=== PATIENT | male | born 1955 | race Caucasian/White ===

== ENCOUNTER 2018-11-01 01:00 | Outpatient (CLI) | payer BC, MEDICARE, SELFPAY ==
--- NOTE | 2018-11-01 08:13 | DI.RAD_ITS ---
SYMPTOM/DIAGNOSIS: LOW BACK PAIN, M54.5 LUMBAR SPINE: There are no prior comparison exams. The vertebral bodies are well maintained in height. There is severe narrowing of the L 4-5 and L 5-S 1 disc spaces. There are endplate osteophytes and sclerosis at these levels. There are mild facet degenerative changes at L 3-4 through L 5-S 1. The remaining disc spaces are well maintained. The SI joints are unremarkable. IMPRESSION: Degenerative disc changes, most severe at L 4-5 and L 5-S 1.
[2018-11-01 08:44] LABS: ALT 75 U/L (12-78); AST 39 U/L (15-37); Alkaline Phosphatase 75 U/L (46-116); Anion Gap 12.6 mmol/L (3-11); BUN 9 mg/dL (7-18); Bilirubin, Direct 0.24 mg/dL (0.00-0.20); Bilirubin, Total 0.8 mg/dL (0.2-1.0); CO2 25.4 mmol/L (21.0-32.0); CREATININE 0.82 mg/dL (0.70-1.30); Calcium 9.7 mg/dL (8.5-10.1); Chloride 95 mmol/L (98-107); Glucose 104 mg/dL (70-100); Potassium 4.8 mmol/L (3.5-5.1); Sodium 133 mmol/L (136-145); Total Protein 8.1 g/dL (6.4-8.2)
[2018-11-01 09:04] LABS: Cholesterol 206 mg/dL (50-200); HDL Cholesterol 101 mg/dL (40-60); LDL CHOLESTEROL 96 mg/dL (<100); Triglyceride 30 mg/dL (30-150)
== END 2018-11-01 01:20 ==
PROVIDERS: PCP Internal Medicine; Visit Provider Internal Medicine
DX: M54.5 Low back pain (principal); M51.37 Other intervertebral disc degeneration, lumbosacral region; I10 Essential (primary) hypertension; R73.01 Impaired fasting glucose; R74.8 Abnormal levels of other serum enzymes
CPT/HCPCS: 36415; 80048; 80061; 80076; 83721; 72110

== ENCOUNTER 2019-10-30 02:33 | Outpatient (CLI) | payer MEDICARE, BC, SELFPAY ==
[2019-10-30 09:02] LABS: ALT 64 U/L (16-63); AST 31 U/L (15-37); Albumin 3.8 g/dL (3.4-5.0); Alkaline Phosphatase 60 U/L (46-116); Anion Gap 5.7 mmol/L (3-11); BUN 11 mg/dL (7-18); Bilirubin, Total 0.5 mg/dL (0.2-1.0); CO2 31.3 mmol/L (21.0-32.0); CREATININE 0.78 mg/dL (0.70-1.30); Calcium 9.7 mg/dL (8.5-10.1); Calculated LDL 114 mg/dL; Chloride 100 mmol/L (98-107); Cholesterol 203 mg/dL (<200); Glucose 114 mg/dL (74-106); HDL Cholesterol 80 mg/dL (40-60); Potassium 5.3 mmol/L (3.5-5.1); Sodium 137 mmol/L (136-145); Total Protein 7.7 g/dL (6.4-8.2); Triglyceride 45 mg/dL (<150)
== END 2019-10-30 02:53 ==
PROVIDERS: PCP Internal Medicine; Visit Provider Internal Medicine
DX: I10 Essential (primary) hypertension (principal); R73.01 Impaired fasting glucose; R76.8 Other specified abnormal immunological findings in serum
CPT/HCPCS: 36415; 80053; 80061

== ENCOUNTER 2022-06-04 01:21 | Outpatient (CLI) | payer MEDICARE, BC, SELFPAY ==
[2022-06-04 09:28] LABS: ALT 39 U/L (16-63); AST 20 U/L (15-37); Albumin 3.7 g/dL (3.4-5.0); Alkaline Phosphatase 69 U/L (46-116); Anion Gap 7.8 mmol/L (3-11); BUN 9 mg/dL (7-18); Bilirubin, Total 0.3 mg/dL (0.2-1.0); CO2 30.2 mmol/L (21.0-32.0); CREATININE 0.9 mg/dL (0.70-1.30); Calcium 9.4 mg/dL (8.5-10.1); Calculated LDL 106 mg/dL (<100); Chloride 101 mmol/L (98-107); Cholesterol 181 mg/dL (<200); Glucose 121 mg/dL (74-106); HDL Cholesterol 66 mg/dL (40-60); Potassium 4.2 mmol/L (3.5-5.1); Sodium 139 mmol/L (136-145); Total Protein 8.3 g/dL (6.4-8.2); Triglyceride 47 mg/dL (<150)
== END 2022-06-04 01:22 | disposition home or self-care (01) ==
LOC: LBO 01:21
PROVIDERS: PCP Internal Medicine; Visit Provider Internal Medicine
DX: I10 Essential (primary) hypertension (principal); E78.5 Hyperlipidemia, unspecified; E78.00 Pure hypercholesterolemia, unspecified; R73.01 Impaired fasting glucose; R76.8 Other specified abnormal immunological findings in serum
CPT/HCPCS: 36415; 80053; 80061

== ENCOUNTER 2023-04-25 02:34 | Outpatient (CLI) | payer MEDICARE, BC, SELFPAY ==
[2023-04-25 08:25] LABS: Hemoglobin A1C 5.7 % (<5.7)
[2023-04-25 08:50] LABS: ALT 29 U/L (16-63); AST 18 U/L (15-37); Albumin 4.1 g/dL (3.4-5.0); Alkaline Phosphatase 76 U/L (46-116); Anion Gap 9.6 mmol/L (3-11); BUN 11 mg/dL (7-18); Bilirubin, Total 0.7 mg/dL (0.2-1.0); CO2 28.4 mmol/L (21.0-32.0); CREATININE 0.8 mg/dL (0.70-1.30); Calcium 9.9 mg/dL (8.5-10.1); Calculated LDL 119 mg/dL (<100); Chloride 97 mmol/L (98-107); Cholesterol 215 mg/dL (<200); Glucose 102 mg/dL (74-106); HDL Cholesterol 91 mg/dL (40-60); Potassium 4.5 mmol/L (3.5-5.1); Sodium 135 mmol/L (136-145); Total Protein 8.3 g/dL (6.4-8.2); Triglyceride 29 mg/dL (<150)
== END 2023-04-25 02:35 | disposition home or self-care (01) ==
LOC: LBO 02:34
PROVIDERS: PCP Nurse Practitioner Adult Health; Visit Provider Nurse Practitioner Adult Health
DX: E78.5 Hyperlipidemia, unspecified (principal); F10.10 Alcohol abuse, uncomplicated; I10 Essential (primary) hypertension; R73.01 Impaired fasting glucose; Z79.899 Other long term (current) drug therapy
CPT/HCPCS: 36415; 80053; 80061; 83036

== ENCOUNTER 2024-04-30 03:51 | Outpatient (CLI) | payer MEDICARE, BC, SELFPAY ==
--- OUTSIDE RECORDS SUMMARY | 2024-04-30 03:53 | XMS_ITS | Encounter Summary ---
Author Organization Formerly [facility] Address [facility] [place] [address] Care Team Providers Care Flower Stripper Name Role Phone Radha Rossi MD Primary Care Provider [phone] Reason for Visit * Reason Comments Blurred Vision * Consultation (Urgent) - Closed Specialty Diagnoses / Procedures Referred By Contdiana t Referred To Contact Ophthalmology Diagnoses mac off retinal detachment os Rocky Thomas MD [address] [address] Juan Becerra MD [facility] [place] [address] Referral ID Status Reason Start Date Expiration Date V isits Requested Visits Authorized [id number] Closed Consult, Test & Treat 10/11/2019 10/10/2020 1 1 Encounter Details Date Type Department Care Team (Latest Contact Info) Description 10/11/2019 12:45 PM EST [place] [address] Juan Becerra MD [facility] [place] [address] Macula-off rhegmatogenous retinal detachment, left; PVD (posterior vitreous detachment), right eye Social History Tobacco Use Types Packs/Day Years Used Date Smoking Tobacco: Never Smokeless Tobacco: Never Alcohol Use Standard Drinks/Week Comments Yes 0 (1 standard drink = 0.6 oz pur e alcohol) Sex and Gender Information Value Date Recorded Sex Assigned at Not on file Gender Identity Not on file Sexual Orientation Not on file documented as of this encounter Progress Notes * Juan Becerra MD - 10/11/2019 12:45 PM EST Assessment/Plan: Juan Perez is a 64 y.o. male with the following ophthalmic issues: 1. 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 PVD OD Comment: Discussed RD, risk of permanent total loss of vision OS, will need surgical repair. To Dr. Jane now documented in this encounter Plan of Treatment Not on file documented as of this encounter Visit Diagnoses Diagnosis Macula-off rhegmatogenous retinal detachment, left PVD (posterior vitreous detachment), right eye Vitreous degeneration documented in this encounter Care Teams Flower Stripper Relationship Specialty Start Date End Date Radha Rossi MD [address] [place] [address] PCP - General 11/30/13 documented as of this encounter
--- OUTSIDE RECORDS SUMMARY | 2024-04-30 03:53 | XMS_ITS | Clinical Summary ---
Author Organization [facility] [place] [address] Care Team Providers Care Bow Stapler Name Role Phone Radha Rossi MD Primary Care Provider [phone] Allergies No known active allergies Medications Medication Sig Dispensed Refills Start Date End Date Status amLODIPine-benazepril (LOTREL) 5-20 mg Capsule Take 1 capsule by mouth daily. 11/10/2014 Active aspirin 81 mg Tablet, Chewable Take 81 mg by mouth daily. Active multivitamin with minerals (THERA-M) 9-0.4 mg Tablet Take 1 tablet by mouth daily. Active VIAGRA 100 mg Tablet Take 100 mg by mouth as needed. 02/08/2015 Active famotidine (Pepcid) 20 mg Tablet TAKE 1 TABLET BY MOUTH DAILY 04/29/2021 Active Active Problems Problem Noted Date Diagnosed Date Dupuytren's contracture of both hands 03/12/2015 Basal cell carcinoma 11/30/2013 Family History Medical History Relation Comments Cancer Father Amblyopia Neg Hx Glaucoma Neg Hx Macular Degeneration Neg Hx Retinal Detachment Neg Hx Strabismus Neg Hx Relation Status Comments Father Social History Tobacco Use Types Packs/Day Years Used Date Smoking Tobacco: Never Smokeless Tobacco: Never Alcohol Use Standard Drinks/Week Comments Yes 0 (1 standard drink = 0.6 oz pur e alcohol) Sex and Gender Information Value Date Recorded Sex Assigned at Not on file Gender Identity Not on file Sexual Orientation Not on file Last Filed Vital Signs Vital Sign Reading Time Taken Comments Blood Pressure 165/86 10/15/2019 3:45 PM EST Pulse 88 10/15/2019 11:20 AM EST Temperature 37.1 ??C (98.8 ??F) 10/15/2019 3:36 PM ES T Respiratory Rate 18 10/15/2019 3:45 PM EST Oxygen Saturation 99% 10/15/2019 3:45 PM EST Inhaled Oxygen Concentration - - Weight 68 kg (150 lb) 10/15/2019 11:20 AM EST Height 163.8 cm (5' 4.5) 10/15/2019 11:20 AM ES T Body Mass Index 25.35 10/15/2019 11:20 AM EST Plan of Treatment Health Maintenance Due Date Last Done Comments CT Colonography 1954 Colonoscopy 1954 Colorectal Cancer Screening 1955 FIT DNA 1954 FIT 1954 Sigmoidoscopy (10 year) with FIT yearly 1954 Sigmoidoscopy 1954 Hepatitis C Screening 1972 Lipid Screening 1972 Tdap adult 1973 Tetanus vaccine 1973 Zoster vaccine (1 of 2) 2004 Advance Directive 2009 Pneumoccocal Vaccine: 65+ (1 of 1 - PCV) 2019 Covid-19 Vaccine (1 - 2022-24 season) 2023 Influenza (Flu) vaccine (1 o f 1 - Influenza standard series) 06/17/2024 Care Teams Bow Stapler Relationship Specialty Start Date End Date Radha Rossi MD [address] [place], [place] [id number] PCP - General 11/30/13
--- OUTSIDE RECORDS SUMMARY | 2024-04-30 03:53 | XMS_ITS | Encounter Summary ---
Author Organization [facility] Address [address] [place] [address] Care Team Providers Care Vascular Ultrasound Technician Name Role Phone Unknown, Provider Primary Care Provider Encounter Details Date Type Department Care Team (Late st Contact Info) Description 09/27/2014 Results Only [facility] Laboratory Services - [facility] ([facility]) [address] [place], [place] [address] Arjun Garcia MD [address] [place] [id number] Social History Tobacco Use Types Packs/Day Years Used Date Smoking Tobacco: Never Assessed Sex and Gender Information Value Date Recorded Sex Assigned at Not on file Gender Identity Not on file Sexual Orientation Not on file documented as of this encounter Plan of Treatment Not on file documented as of this encounter Procedures Procedure Name Priority Date/Time Associated Diagnosis Comments SURGICAL PATHOLOGY Routine 09/27/2014 9:24 EST documented in this encounter Results * SURGICAL PATHOLOGY (09/27/2014 9:24 EST) Pathology Report: SURGICAL PATHOLOGY REPORT Reports generated via electronic interface contain original data; however they are lacking the format of the original report. Caution should be taken when reading/interpret ing unformatted reports. Name: ? FÁTIMA AKINS ? Accession #: ? [id number] ? : ? 1955 (Age: 59) ??M ? Collect Date: ? 09/27/2014 ? Location: ? [facility] ? Receive Date: ? 09/28/2014 ? Provider: ARJUN GARCIA MD Copy to: PETER RAMAN MD ? Final Pathologic Diagnosis: SOFT TISSUE OF HAND, LEFT, PALMAR FASCIA, EXCISION: - ??Palmar fibromatosis (Dupuytren contracture). Document reviewed and electronically signed by: NATHAN DOWNING MD Report ??Date: 10/01/2014 15:59 By the signature above, the attending physician certifies that he/she has personally conducted a gross and/or microscopic examination of the described specimens and rendered or confirmed the above diagnosis. Specimen(s) Received: Dupuytren's fascia Clinical History: Palmar fascia, severe Dupuytren's disease, Dupuytren's contracture left hand Gross Description: ? Received in formalin labelled with proper patient identification (initials H, D) and Dupuytren's fascia are two irregular fragments of figueroa-white fibrous tissue (0.9 x 0.4 x 0.4 cm and 1.0 x 0.7 x 0.5 cm). ??The larger piece is inked black and the smaller piece is inked blue. ??The tissues are sectioned and the cut surfaces are unremarkable. ??The specimen is entirely submitted in 1. Mayra Rios 09/30/2014 09:34 AM End of Report [facility] 09/27/2014 9:24 EST 09/28/2014 9:24 EST Arjun Garcia MD PATHOLOGY ORDERABLE S Performing Organization Address City/State/[facility] Co de Phone Number [facility] [address] [place] [address] documented in this encounter Visit Diagnoses Not on filedocumented in this encounter Care Teams Vascular Ultrasound Technician Relationship Specialty Start Date End Date Unknown, Provider, PCP - General 09/30/14 documented as of this encounter
--- OUTSIDE RECORDS SUMMARY | 2024-04-30 03:53 | XMS_ITS | Encounter Summary ---
Author Organization [facility] [place] [address] Care Team Providers Care Hat Parts Cutter Machine Name Role Phone Radha Rossi MD Primary Care Provider [phone] Reason for Visit * Reason Comments Post Op Macula-off RD OS (PP V-C3F8 10/16/19) Encounter Details Date Type Department Care Team (Late st Contact Info) Description 11/29/2019 2:15 PM EST Office Visit Ophthalmology at [facility] [place] [place] [address] Bassem Jane [place] [facility] [place] [address] Macula-off [address] OS (PPV-C3F8 10/16/19) Social History Tobacco Use Types Packs/Day Years Used Date Smoking Tobacco: Never Smokeless Tobacco: Never Alcohol Use Standard Drinks/Week Comments Yes 0 (1 standard drink = 0.6 oz pur e alcohol) Sex and Gender Information Value Date Recorded Sex Assigned at Not on file Gender Identity Not on file Sexual Orientation Not on file documented as of this encounter Patient Instructions * Patient Instructions* Bassem Jane MD - 11/29/2019 2:15 PM EST The doctor recommended laser retinopexy. What should I expect? Before the Laser The doctor will use topical anesthetics with drops and/or injections to numb up the eye. During the laser The laser takes 5-15 minutes. The patients frequently feel some discomfort that is generally well tolerated. If you feel that you cannot tolerate it please tell the doctor and the settings will be adjusted. If you still feel pain the treatment can be stopped. A small minority of the patients feel light-headed during the laser. If you feel so please let usknow and we will stop it. If you're diabetic please make sure you eat at your usual times prior to the laser. Immediately after the laser The vision is very blurry for 1-2 minutes but goes back to baseline. Some patients feel foreign body sensation and mild pain for ~24 hours and in these cases application of over the counter artificial tears is recommended. Over the counter medications (e.g. Tylenol or ibuprophen) might also help For several days after the laser The eye might look red and swollen. Use of artificial tears sometimes helps. Activity restrictions: A) please avoid any high impact activities such as long distance running, heavy weight lifting (i.e. More than 20lbs), contact sports (e.g. boxing, basketball etc) for 2 weeks. It's ok however to do most of your basic daily activities including sports with low impact (swimming, bike riding, walkingon treadmill etc) documented in this encounter Progress Notes * Bassem Jane MD - 11/29/2019 2:15 PM EST ASSESSMENT/PLAN: 1. Macula-off RD OS (PPV-C3F8 10/16/19) Visual Acuity Visual Acuity (Snellen - Linear) Right Left Dist sc 20/20 -2 20/70 Dist ph sc 20/50 Near cc 20/20 20/30 Tonometry Tonometry (Applanation, 2:03 PM) Right Left Pressure 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 The treatment options were discussed and agreed to do prophylactic LR. If it fails surgery might be recommended. Follow up in 1 week for DFE OS I, Jonel Lu, have performed the documentation for this encounter in the presence of, and acting as a scribe for Bassem Jane MD. I performed the services which were documented by the scribe, and I agree with the accuracy of the documentation in this encounter. Bassem Jane MD, PhD documented in this encounter Plan of Treatment Not on file documented as of this encounter Visit Diagnoses Diagnosis Macula-off RD OS (PPV-C3F8 10/16/19) documented in this encounter Care Teams Hat Parts Cutter Machine Relationship Specialty Start Date End Date Radha Rossi MD [address] [place] [address] PCP - General 11/30/13 documented as of this encounter
--- OUTSIDE RECORDS SUMMARY | 2024-04-30 03:53 | XMS_ITS | Encounter Summary ---
Author Organization [facility] [place] [address] Care Team Providers Care Applications Support Engineer Name Role Phone Radha Rossi MD Primary Care Provider [phone] Reason for Visit * Reason Comments Post Op Encounter Details Date Type Department Care Team (Late st Contact Info) Description 10/24/2019 10:30 AM EST Office Visit Ophthalmology at [facility] [place] [address] [place] [address] Macula[address] OS (PPV-C3F8 10/16/19) Social History [...] * Patient Instructions* Bassem Jane MD - 10/24/2019 10:30 AM EST Images from the original note were not included. Drop Name: Cap Color: Dose: 1 Drop Eye: Prednisolone Acetate 1% [place] or White 2 times per day Until bottle empties Operated eye Cosopt Blue 2 times per day until next visit Operated eye Vigamox (Moxifloxacin) Salazar STOP Ointment Small tube 2-3x daily as needed Operated eye Make sure to wait 3-5 minutes between eye drops. POSITIONING: No special positioning WARNING SYMPTOMS People frequently feel mild-moderate discomfort that improves within a few days. Eyelid edema and redness are also common. However, if you feel new pain, light sensitivity and vision loss please call the [facility] telephone center ([phone]) immediately and speak to the adult probation officer vanstone machine operator. PAIN May use over the counter pain medications as needed (Tylenol 1000mg- up to 3 times daily) alternating with ibuprofen (600mg up to 3 times per day) EYE SHIELD: Keep eye shield on the eye overnight. If you catch yourself touching your eye during daytime pleaseuse eyeshield during daytime to protect your eye. OTHERS Make sure you wash your hands prior to touching your eye (i.e. Prior to applying your eyedrops) Avoid lifting heavy weights for 1 week (i.e. Not more than 5 lbs) Avoid high impact exercise (e.g. Running) Avoid straining- valsalva, retching, vomiting, coughing FLIGHTS: Do NOT take any flights until you discuss it with your doctor. There's severe risk for the eye if you're in areas of high altitude (flight, very tall mountains etc) documented in this encounter Progress Notes * Bassem Jane MD - 10/24/2019 10:30 AM EST ASSESSMENT/PLAN: 1. Macula-off RD OS (PPV-C3F8 10/16/19) POW1 Doing well. The IOP is good, the retina attached and there are no signs of infection. Taper PF BID till the bottle empties. Taper Cosopt BID OS until next visit. Stop Vigamox and cycloplegics. Follow up in 5-6 weeks HCK for DFE, OCT OU I, Jonel Lu, have performed the documentation [...] 10/16/19) documented in this encounter Care Teams Applications Support Engineer Relationship Specialty Start Date End Date Radha Rossi MD [address] [place] [address] PCP - General 11/30/13 documented as of this encounter
--- OUTSIDE RECORDS SUMMARY | 2024-04-30 03:53 | XMS_ITS | Encounter Summary ---
Author Organization [facility] [place] [address] Care Team Providers Care Braiding Machine Tender Name Role Phone Radha Rossi MD Primary Care Provider [phone] Encounter Details Date Type Department Care Team (Latest Contact Info) Description 10/11/2019 1:45 PM EST Office Visit Ophthalmology at [facility] [place] [address] Bassem Jane MD [facility] [place] [address] Macula-off rhegmatogenous retinal detachment, left Social History Tobacco Use Types Packs/Day Years [...] * Patient Instructions* Bassem Jane MD - 10/11/2019 1:45 PM EST DROPS: POSITIONING: Please keep a face down position for ~50mins/hour while awake. It's ok to take a ~10 minute break every hour. Please sleep on your side with the RIGHT cheek touching the pillow FLIGHTS: Do NOT take any flights until you discuss it with your doctor. There's severe risk for the eye if you're in areas of high altitude (flight, very tall mountains etc) documented in this encounter Progress Notes * Bassem Jane MD - 10/11/2019 1:45 PM EST ASSESSMENT/PLAN: 1. Macula-off rhegmatogenous retinal detachment, left 1. Retinal detachment, left eye (09/2019) Juan Perez presents with diagnosis of retinal detachment in the left eye. Discussed that if left untreated a retinal detachment will almost certainly lead to permanent vision loss. Discussed the risks, benefits and alternatives of the treatment options including: prophylactic laser photocoagulation vs pneumatic retinopexy vs PPV vs SB vs PPV-SB and the patient wishes to proceed with vitrectomy under MAC. Till then will do pneumatic displacement with C3F8 (w/o retinopexy). Recommend face down position and tobradex QID till the day of surgery AAO video shown/ASRS fact sheet given Discussed the risk of surgery including need for additional surgery, recurrent retinal detachment, endophthalmitis, retinal artery occlusion, suprachoroidal hemorrhage, lens dislocation, loss of vision, loss of eye. Discussed that even after successful repair there's a high risk that the vision will be permanently affected. Also discussed the risks of anesthesia that will be discussed with the anesthesiologist 2. PVD OU 3. PCIOL OU C3F8 bubble injection today Follow up in 1 day for gas bubble check Follow up for surgery and HCK I, Jonel Lu, have performed the documentation for this encounter in the presence of, and acting as a scribe for Bassem Jane MD. I performed the services which were documented by the scribe, and I agree with the accuracy of the documentation in this encounter. Bassem Jane MD, PhD Extended Ophthalmoscopy and drawing: Technique: 20D with scleral depression and 78D with the slit lamp Findings: Main Ophthalmology Exam External Exam Right Left External Normal Normal Slit Lamp Exam Right Left Lids/Lashes Normal Normal Conjunctiva/Sclera White and quiet White and quiet Cornea Clear Clear Anterior Chamber Deep and quiet Deep and quiet Iris Round and reactive, dilated Round and reactive, dilated Lens PCIOL PCIOL Fundus Exam Right Left Vitreous PVD PVD Disc Normal Normal C/D Ratio 0.3 0.6 Macula drusen Macula off Vessels Normal perfused Periphery Normal RD 10:30-5:00 Plan: See assessment and plan (exam note) documented in this encounter Plan of Treatment Not on file documented as of this encounter Procedures Procedure Name Priority Date/Time Associated Diagnosis Comments VITRCTMY W/WO SCLER RODGERS FOR RETINAL DETACH W/WO AIR/GAS/LASER/CRYO Routine 10/11/2019 3:05 PM EST Macula-off rhegmatogenous retinal detachment, left documented in this encounter Visit Diagnoses Diagnosis Macula-off rhegmatogenous retinal detachment, left documented in this encounter Care Teams Braiding Machine Tender Relationship Specialty Start Date End Date Radha Rossi MD [address] [place] [address] PCP - General 11/30/13 documented as of this encounter
--- OUTSIDE RECORDS SUMMARY | 2024-04-30 03:53 | XMS_ITS | Encounter Summary ---
Author Organization [facility] [place] [address] Care Team Providers Care Commercial Account Executive Name Role Phone Radha Rossi MD Primary Care Provider [phone] Encounter Details Date Type Department Care Team (Late st Contact Info) Description 10/16/2019 12:15 PM EST Office Visit Ophthalmology at [facility] [place] [address] Bassem Jane MD [facility] [place] [address] Macula-off [address] OS (PPV-C3F8 10/16/19) Social History [...] * Patient Instructions* Bassem Jane MD - 10/16/2019 12:15 PM EST Images from the original note were not included. Drop Name: Cap Color: Dose: 1 Drop Eye: Prednisolone Acetate 1% [place] or White 4 times per day Operated eye Vigamox (Moxifloxacin) Salazar 4 times per day Operated eye Cosopt Blue 3 times per day Operated eye Ointment Small tube As needed, up to 4 times daily (to relieve foreign body sensation and irritation caused by stitches) Operated eye Atropine Red none none Make sure you wait 3-5 minutes between each drop application. Please use the ointment at least 1 hour prior to and/or after the drops (applying the ointment right before the drops will not allow youreye to absorb the drops) POSITIONING: No special positioning during daytime. Please sleep on your side with the right cheek touching the pillow WARNING SYMPTOMS: - People frequently feel mild-moderate discomfort and foreign body sensation that improves within days. - Eyelid/eyeball swelling and redness are also common for a few weeks. - Small floaters or bubbles that come and go are not usually worrisome. However, if you experience vision loss, new strong pain, light sensitivity and/or tenderness please call the [facility] [employer] center ([phone]) PAIN: May use over the counter pain medications as needed (Tylenol 1000mg- up to 3 times daily) alternating with ibuprofen (600mg up to 3 times per day) EYE SHIELD: Keep eye shield on the eye overnight. If you catch yourself touching your eye during daytime pleaseuse eyeshield during daytime to protect your eye. OTHERS: Make sure you wash your hands prior to touching your eye (i.e. Prior to applying your eyedrops). Donot rub or squeeze your eye. Avoid lifting heavy weights for 1 month (i.e. Not more than 5 lbs for 1 week and 15Lbs for 1 month) Avoid high impact exercise (e.g. Running, aerobic class, skiing) Avoid straining, retching, vomiting, coughing as much as possible FLIGHTS: Do NOT take any flights until you discuss it with your doctor. There's severe risk for the eye if you're in areas of high altitude (flight, very tall mountains etc) documented in this encounter Progress Notes * Bassem Jane MD - 10/16/2019 12:15 PM EST ASSESSMENT/PLAN: 1. Macula-off RD OS (PPV-C3F8 10/16/19) POD#1 Juan Perez returns for POD#1 visit. The retina looks attached on exam, the IOP is high and there are no signs of endophthalmitis. Post-op instructions reviewed. Use Pred Forte and Vigamox QID, and Cosopt TID on operated eye. No atropine. STOP Tobradex Follow up next week for POW#1 visit I, Jonel Lu, have performed the documentation [...] 10/16/19) documented in this encounter Care Teams Commercial Account Executive Relationship Specialty Start Date End Date Radha Rossi MD [address] [place] [address] PCP - General 11/30/13 documented as of this encounter
--- OUTSIDE RECORDS SUMMARY | 2024-04-30 03:53 | XMS_ITS | Encounter Summary ---
Author Organization [facility] Address [address] [place] [address] Care Team Providers Care Keypuncher Name Role Phone Unknown, Provider Primary Care Provider [phone] Encounter Details Date Type Department Care Team (Latest Contact Info) Description 10/02/2014 11:04 EST - 10/02/2014 23:59 EST Hospital Encounter [address] [address] Unknown, Provider, Discharge Disposition: Home or Self Care Social History Tobacco Use Types Packs/Day Years Used Date Smoking Tobacco: Never Assessed Sex and Gender Information Value Date Recorded Sex Assigned at Not on file Gender Identity Not on file Sexual Orientation Not on file documented as of this encounter Discharge Disposition Disposition Code Departure Means Destination Home or Self Penitentiary documented in this encounter Plan of Treatment Not on file documented as of this encounter Visit Diagnoses Not on filedocumented in this encounter Care Teams Keypuncher Relationship Specialty Start Date End Date Unknown, Provider, PCP - General 09/30/14 documented as of this encounter
--- OUTSIDE RECORDS SUMMARY | 2024-04-30 03:53 | XMS_ITS | Encounter Summary ---
Author Organization [facility] Address [facility] [place] [address] Care Team Providers Care Game Trapper Name Role Phone Radha Rossi MD Primary Care Provider [phone] Encounter Details Date Type Department Care Team (Late st Contact Info) Description 03/12/2015 11:52 AM EDT - 03/12/2015 11:59 PM EDT Hospital Encounter XRay at [address] [place] [address] Left hand pain Social History Tobacco Use Types Packs/Day Years Used Date Smoking Tobacco: Never Smokeless Tobacco: Never Alcohol Use Standard Drinks/Week Comments Yes 0 (1 standard drink = 0.6 oz pur e alcohol) Sex and Gender Information Value Date Recorded Sex Assigned at Not on file Gender Identity Not on file Sexual Orientation Not on file documented as of this encounter Medications at Time of Discharge Medication Sig Dispensed Refills Start Date End Date VIAGRA 100 mg Tablet Take 100 mg by mouth as needed. 02/08/2015 amLODIPine-benazepril (LOTREL) 5-20 mg Capsule Take 1 capsule by mouth daily. 11/10/2014 aspirin 81 mg Tablet, Chewable Take 81 mg by mouth daily. multivitamin with minerals (THERA-M) 9-0.4 mg Tablet Take 1 tablet by mouth daily. documented as of this encounter Plan of Treatment Not on file documented as of this encounter Procedures Procedure Name Priority Date/Time Associated Diagnosis Comments XR HAND DIAGNOSTIC MINIMUM 3 VIEWS Routine 03/12/2015 12:11 PM EDT Left hand pain documented in this encounter Results * XR hand diagnostic minimum 3 views (03/12/2015 12:11 PM EDT) Anatomical Region Laterality Modality Hand N/A Radiographic Clara ging 03/12/2015 12:1 1 PM EDT Impressions 03/12/2015 1:17 PM EDT IMPRESSION: 1. Flexion deformities of the fourth and fifth fingers, as above. Narrative 03/12/2015 1:17 PM EDT EXAMINATION: DIAG HAND MIN 3 VIEWS/LEFT CLINICAL HISTORY: ? TN ??L HAND PAIN TECHNIQUE: 3 views of the left hand COMPARISON: None FINDINGS: No fracture or dislocation is detected. There are flexion deformities of the fourth and fifth fingers. The index and long fingers are also held in mild flexion. Joint spaces appear grossly maintained. Small rounded radiolucency which may represent a cyst is noted at the fifth metacarpal head. No chondrocalcinosis is identified. Procedure Note Rocky Jordan MD - 03/12/2015 EXAMINATION: DIAG HAND MIN 3 VIEWS/LEFT CLINICAL HISTORY: TN L HAND PAIN TECHNIQUE: 3 views of the left hand COMPARISON: None FINDINGS: No fracture or dislocation is detected. There are flexion deformities ofthe fourth and fifth fingers. The index and long fingers are also held inmild flexion. Joint spaces appear grossly maintained. Small roundedradiolucency which may represent a cyst is noted at the fifth metacarpal head. No chondrocalcinosis is identified. IMPRESSION IMPRESSION: 1. Flexion deformities of the fourth and fifth fingers, as above. Nigel Quinonez MD IMG DX ORDERABLES documented in this encounter Visit Diagnoses Diagnosis Left hand pain Pain in limb documented in this encounter Care Teams Game Trapper Relationship Specialty Start Date End Date Radha Rossi MD [address] [place] [address] PCP - General 11/30/13 documented as of this encounter
--- OUTSIDE RECORDS SUMMARY | 2024-04-30 03:53 | XMS_ITS | Encounter Summary ---
Author Organization [facility] [place] [address] Care Team Providers Care Pump Oiler Name Role Phone Radha Rossi MD Primary Care Provider [phone] Encounter Details Date Type Department Care Team (Late st Contact Info) Description 10/15/2019 1:34 PM EST Anesthesia Event [place] [id number] Shaheen Bo MD [facility] [place] [address] Anesthesia Record Procedure Summary Procedure Name Responsible Anesthesiologist Anesthesia Start Time Anesthesia Stop Time REPAIR RETINAL DETACHMENT W/ VITRECTOMY, SCLERAL BUCKLE; AIR,GAS,OIL,LASER,CR YO (WRVU 17.13) (Left: Eye) Shaheen Bo MD 10/15/19 1334 10/15/19 1541 Events Date Time Event Comment 10/15/2019 1324 1334 Start 1338 AN Verify 1339 An Start Data 1345 An Induction 1352 An Intubation 1355 Anesthesia Ready 1419 Procedure Start 1531 Extubation/LMA Out 1532 an stop data 1541 Recovery or ICU Handoff Tammi ent care was transferred to the destination unit staff after review of the patient's medical history, current anesthetic/surgical status and plan, according to the Provider Handoff Checklist. 1541 Stop Meds Name Total Propofol 270 mg fentaNYL 200 mcg Midazolam 2 mg IV Lidocaine 50 mg Dexamethasone 8 mg ePHEDrine 10 mg PHENYLephrine 240 mcg Dexmedetomidine 12 mcg lactated ringers infusion 700 mL * Agents Name O2 Air N2O Sevoflurane (et) * Blood No blood administrations on file. Lines, Drains, and Airways Type Details Placement Removal (RETIRED) Peripheral IV Line - Single Lumen 10/15/19; 1136; median cubital vein (antecubital fossa), right; [id number] catheter system; 20 gauge; distraction, tolerated well; 10/15/19; 1611 10/15/19 1136 by Syl Lee RN 10/15/19 1611 by Lily Munoz RN Supraglottic Mask Ventilation: Easy (1); LMA Type: Unique; LMA Size: 4; Inserted by: Shaheen Bo; Removal Date: 10/15/19; Removal Time: 1531 10/15/19 1357 by Luz Crook MD 10/15/19 1531 by Luz Crook MD Incision 10/15/19; 1412; eye; 06/14/22 (LDA cleanup utility RA#[id number]); 1715 (LDA cleanup utility RA#[id number]) 10/15/19 1412 by Barbra Weaver RN 06/14/22 1715 by Leonardo Jaimes documented in this encounter Social History Tobacco Use Types Packs/Day Years Used Date Smoking Tobacco: Never Smokeless Tobacco: Never Alcohol Use Standard Drinks/Week Comments Yes 0 (1 standard drink = 0.6 oz pur e alcohol) Sex and Gender Information Value Date Recorded Sex Assigned at Not on file Gender Identity Not on file Sexual Orientation Not on file documented as of this encounter OR Notes * Anesthesia Postprocedure Evaluation - Luz Crook MD - 10/15/2019 3:43 PM EST Department of Anesthesiology Post-procedure Note Patient: Juan Perez Procedure Summary Date: 10/15/19 Room / Location: [facility] OR [address] [place] [address] MAIN OR Anesthesia Start: 1334 Anesthesia Stop: 1541 Procedures: REPAIR RETINAL DETACHMENT W/ VITRECTOMY, SCLERAL BUCKLE; AIR,GAS,OIL,LASER,CRYO (WRVU 15.19) (Left Eye) REPAIR OF IRIS,CILIARY BODY (WRVU 6.39) (Left Eye) Diagnosis: Macula-off rhegmatogenous retinal detachment, left (Retinal Detachment left eye) Surgeon: Bassem Jane MD Responsible Provider: Shaheen Bo MD Anesthesia Type: MAC ASA Status: 2 All Anesthesia Providers: Anesthesiologist: Shaheen Bo MD Upholstery Cutter: Luz Crook MD Vitals Value Taken Time BP Temp Pulse Resp SpO2 98 % 10/15/2019 3:42 PM Pain Level Vitals shown include unvalidated device data. Patient Location: PACU/[facility] Level of Consciousness: Awake and Alert Pain Management: Satisfactory Analgesia PONV: None Cardiovascular Status: At Baseline Respiratory Status: At Baseline Postoperative Fluid Status: Intravascular EUvolemia Possible Anesthetic Complications: NONE apparent at time of evaluation Final Primary Anesthesia Type: General (The anesthetic type performed was the same as planned.) Comments: * Anesthesia Preprocedure Evaluation - Shaheen Bo MD - 10/13/2019 12:41 PM EST Pre-Anesthesia Evaluation for: Juan Perez a 64 y.o. male. Procedure(s): REPAIR RETINAL DETACHMENT W/ VITRECTOMY, SCLERAL BUCKLE; AIR,GAS,OIL,LASER,CRYO (WRVU 15.19) Patient Active Problem List Diagnosis ??? Dupuytren's contracture of both hands ??? Basal cell carcinoma Past Medical History: Diagnosis Date ??? Cancer ??? Hypertension ??? Skin disease Past Surgical History: Procedure Laterality Date ??? CATARACT EXTRACTION, EXTRACAPSULAR, W/ LENS INSERTION Bilateral [id number] PCIOL OU - [facility] ??? RETINOPATHY SURGERY Social History Tobacco Use ??? Smoking status: Never Smoker ??? Smokeless tobacco: Never Used Substance Use Topics ??? Alcohol use: Yes Social History Substance and Sexual Activity Drug Use No No Known Allergies Medications: MAR and/or home medications have been reviewed. Physical Exam: There were no vitals filed for this visit. There is no height or weight on file to calculate BMI. Airway Assessment: Mallampati: II TM distance: >3 FB Neck ROM: full Cardiovascular Assessment: Pulmonary Assessment: Dental Assessment: - normal exam Misc Assessment: Anesthesia Plan: ASA 2 general, with a(n) intravenous induction Attending Assessment: Patient personally seen and examined. 64yo M 70kg presenting for left retinal detachment repair PMH: HTN, basal cell carcinoma, Dupuytren's contracture, h/o cataract surgery No cardiac or pulmonary problems. No recent URI. Never smoked No GERD (asymptomatic in preop). No problems with anesthesia in the past. No anesthesia records available. Meds: reviewed, ASA, Norvasc, MVI EKG: none available/indicated NPO status adequate Plan: - standard ASA monitors, PIV - GA The patient was informed of the risks, benefits and alternatives of anesthesia. These risks included, but were not limited to, post-operative nausea and/or vomiting, pain, sore throat, dental/lip injury, and other rare but serious complications such as cardiac instability/arrest, neurologic event, awareness, severe allergic reactions, position-related nerve injuries, and need blood transfusions. All questions sought and answered. Consent was signed and placed in chart. Shaheen Bo MD 10/13/2019 Region - Other Informed Consent: Anesthetic plan and risks discussed with patient. Plan discussed with resident and attending. PAT Clinic Note documented in this encounter Plan of Treatment Not on file documented as of this encounter Visit Diagnoses Not on filedocumented in this encounter Administered Medications Inactive Administered Medications - up to 3 most recent administrations Medication Order MAR Action Action Date Dose Rate Site dexamethasone (DECADRON) injection Intravenous, PRN, Starting on Tue10/15/19 at 1355, Until Tue10/15/19 at 1541, Anesthesia Intra-op, Routine Given 10/15/2019 1:55 PM EST 8 mg dexmedetomidine (PRECEDEX) injection PRN, Starting on Tue10/15/19 at 1415, Until Tue10/15/19 at 1541, Anesthesia Intra-op, Routine Given 10/15/2019 2:49 PM EST 4 mcg Given 10/15/2019 2:15 PM EST 8 mcg ePHEDrine 5 mg/mL multi-dose injection Intravenous, PRN, Starting on Tue10/15/19 at 1410, Until Tue10/15/19 at 1541, Anesthesia Intra-op, Routine Given 10/15/2019 2:10 PM EST 10 mg fentaNYL 50 mcg/mL multi-dose injection Intravenous, PRN, Starting on Tue10/15/19 at 1356, Until Tue10/15/19 at 1541, Anesthesia Intra-op, Routine Given 10/15/2019 2:49 PM EST 50 mcg Given 10/15/2019 2:15 PM EST 50 mcg Given 10/15/2019 2:05 PM EST 50 mcg lactated ringers infusion 1,000 mL, at 100 mL/hr, Intravenous, CONTINUOUS, Starting on Tue10/15/19 at 1145, Until Tue10/15/19 at 1611, Day of Surgery (Day of Procedure) New Bag 10/15/2019 1:34 PM EST New Bag 10/15/2019 11:38 AM EST 1,000 mLs 100 mL/hr lidocaine (PF) (XYLOCAINE) 100 mg/5 mL (2 %) injection Intravenous, PRN, Starting on Tue10/15/19 at 1345, Until Tue10/15/19 at 1541, Anesthesia Intra-op, Routine Given 10/15/2019 1:45 PM EST 50 mg midazolam (PF) (VERSED) multi-dose injection Intravenous, PRN, Starting on Tue10/15/19 at 1334, Until Tue10/15/19 at 1541, Anesthesia Intra-op, Routine Given 10/15/2019 1:34 PM EST 2 mg PHENYLephrine in NS (PF) (RAFAELA-SYNEPHRINE) 0.8 mg/10 mL (80 mcg/mL) multi-dose injection Syrg Intravenous, PRN, Starting on Tue10/15/19 at 1406, Until Tue10/15/19 at 1541, Anesthesia Intra-op, Routine Given 10/15/2019 2:10 PM EST 160 mcg Given 10/15/2019 2:06 PM EST 80 mcg propofol (DIPRIVAN) 10 mg/mL bolus injection (Anesthesia) Intravenous, PRN, Starting on Tue10/15/19 at 1345, Until Tue10/15/19 at 1541, Anesthesia Intra-op Given 10/15/2019 1:51 PM EST 70 mg Given 10/15/2019 1:48 PM EST 50 mg Given 10/15/2019 1:45 PM EST 150 mg documented in this encounter Care Teams Pump Oiler Relationship Specialty Start Date End Date Radha Rossi MD [address] [place] [address] PCP - General 11/30/13 documented as of this encounter
--- OUTSIDE RECORDS SUMMARY | 2024-04-30 03:53 | XMS_ITS | Encounter Summary ---
Author Organization [facility] [place] [address] Care Team Providers Care Lecturer In Computer Science Name Role Phone Radha Rossi MD Primary Care Provider [phone] Reason for Visit * Reason Onset Date Comments Appointment 01/19/2020 Encounter Details Date Type Department Care Team (Late st Contact Info) Description 01/19/2020 Telephone Ophthalmology at [facility] [place] [address] Bassem Jane MD [facility] [place] [address] Appointment Social History Tobacco Use Types Packs/Day Years Used Date Smoking Tobacco: Never Smokeless Tobacco: Never Alcohol Use Standard Drinks/Week Comments Yes 0 (1 standard drink = 0.6 oz pur e alcohol) Sex and Gender Information Value Date Recorded Sex Assigned at Not on file Gender Identity Not on file Sexual Orientation Not on file documented as of this encounter Miscellaneous Notes * Telephone Encounter - Cindy Laureano - 01/23/2020 12:25 PM EDT Patient called back and was given code. He will keep appt. * Telephone Encounter - Cindy Laureano - 01/21/2020 12:13 PM EDT Patient would like to talk to on if he wants to keep appointment. He will call back to see if he wants to keep appointment or reschedule. * Telephone Encounter - Cindy Laureano - 01/19/2020 12:50 PM EDT LMAOAM x 1 to let patient and family know that anyone coming into the building without an appointment will need a code. Told patient that if she will have someone with them then they need to have a code. CODE [id number] documented in this encounter Plan of Treatment Not on file documented as of this encounter Visit Diagnoses Not on filedocumented in this encounter Care Teams Lecturer In Computer Science Relationship Specialty Start Date End Date Radha Rossi MD [address] [place] [address] PCP - General 11/30/13 documented as of this encounter
--- OUTSIDE RECORDS SUMMARY | 2024-04-30 03:53 | XMS_ITS | Encounter Summary ---
Author Organization [facility] Address [place] [address] Care Team Providers Care Police Captain Name Role Phone Radha Rossi MD Primary Care Provider [phone] Reason for Visit * Reason Comments Left Hand Pain left long, ring, sma ll finger dupuytrens contractures s/p surgery osh 09/27/2014 Encounter Details Date Type Department Care Team (Late st Contact Info) Description 03/12/2015 1:25 PM EDT Office [place] [address] Nigel Quinonez MD [facility] [place] [address] Dupuytren's contracture of both hands Discharge Disposition: Home Social History Tobacco Use Types Packs/Day Years Used Date Smoking Tobacco: Never Smokeless Tobacco: Never Alcohol Use Standard Drinks/Week Comments Yes 0 (1 standard drink = 0.6 oz pur e alcohol) Sex and Gender Information Value Date Recorded Sex Assigned at Not on file Gender Identity Not on file Sexual Orientation Not on file documented as of this encounter Last Filed Vital Signs Vital Sign Reading Time Taken Comments Blood Pressure 146/84 03/12/2015 1:24 PM EDT Pulse 85 03/12/2015 1:24 PM EDT Temperature - - Respiratory Rate - - Oxygen Saturation - - Inhaled Oxygen Concentration - - Weight 70.3 kg (155 lb) 03/12/2015 1:24 PM EDT s tated Height 165.1 cm (5' 5) 03/12/2015 1:24 PM EDT s tated Body Mass Index 25.79 03/12/2015 1:24 PM EDT documented in this encounter Progress Notes * Ling Ha PA - 03/12/2015 4:02 PM EDT This 59-year-old gentleman comes in today for evaluation of both hands. 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 He had significant contracture interfering with the use of his hand on the left at the ring and small fingers and to a lesser degree the long finger. He had this treated by Dr. Woods on 09/27/2014. Dr. Woods's operative note notes that he was not able to get the fifth finger out to full extension, fourth finger was near full, and long finger as well. This was in regards to his surgical open fasciectomy. The patient notes that since the time of surgery he has had recurrence of his contractures of the ring and small fingers. This actually somewhat worse than it had been preoperatively. He has inability to fully flex the fingers now or extend them. He has been through extensive OT and splinting and this does not seem to help. He has sensitivity of the small finger with pain in it. He denies any sweatiness or change in temperature, though on exam there is some hyperhidrosis today. He comes in today for opinion whether there is any further treatment options for this left hand. The patient also Dupuytren's contracture of the right small finger that is not painful, but starting to interfere with that hand also. PHYSICAL EXAMINATION: Examination today in conjunction with Dr. Quinonez shows him to be in no acute distress. Examination of his left hand shows that he has linear scars on the palm and the ray of the fourth and fifth fingers. There is generalized redness discoloration of the skin, but no evidence of infection. The ulnar side of the fifth finger is quite sensitive to touch, to a lesser degree on the ulnar side in the ring finger. He has a PIP contracture of approximately 90 degrees, MCP of 55 degrees of the small finger. On the left hand, ring finger PIP is slightly greater than 90 degrees, about 95, MCP 55 degrees. Again, there is no change in skin color, but there is some hyperhidrosis noted. X-rays show no acute bony abnormalities. They are consistent with his Dupuytren's contractures. There is also noted to be a spiral cord on the ulnar aspect of the small finger contributing to the PIP joint contracture. Right small finger contracture of 60 degrees at the PIP joint, 70 degrees at the MCP joint. No erythema. No tenderness. Neurovascular status of the hand is normal. IMPRESSION: 1. Recurrent Dupuytren's contractures, left fourth and fifth fingers with a spiral cord of the proximal interphalangeal of the small finger. 2. Right small finger proximal interphalangeal and metacarpophalangeal contractures secondary to Dupuytren's disease. TREATMENT: A long discussion had with the patient. For the right hand, we discussed Xiaflex injection. We went over possible risks and complications and the patient feels that he would like to proceed with treatment for the right small finger at this time. We then discussed trying Xiaflex for the spiral cord on the small finger PIP Joint on left hand at a future date. Once we can get the small finger out of his palm more, we may be able to decide if further treatment options are warranted such as limited aponeurotomy or surgical release again. All questions answered. The patient comfortable with this plan. We will anticipate seeing him back to proceed with right small finger Xiaflex injections for PIP and MCP contractures. documented in this encounter Plan of Treatment Not on file documented as of this encounter Visit Diagnoses Diagnosis Dupuytren's contracture of both hands Contracture of palmar fascia documented in this encounter Care Teams Police Captain Relationship Specialty Start Date End Date Radha Rossi MD [address] [place] [address] PCP - General 11/30/13 documented as of this encounter
--- OUTSIDE RECORDS SUMMARY | 2024-04-30 03:53 | XMS_ITS | Referral Summary ---
Author Organization [facility] Address [address] [place] [address] Care Team Providers Care Clothespin Machine Operator Name Role Phone Unknown, Provider Primary Care Provider Social History Tobacco Use Types Packs/Day Years Used Date Smoking Tobacco: Never Assessed Sex and Gender Information Value Date Recorded Sex Assigned at Not on file Gender Identity Not on file Sexual Orientation Not on file Plan of Treatment Not on file Care Teams Clothespin Machine Operator Relationship Specialty Start Date End Date Unknown, Provider, PCP - General 09/30/14
--- OUTSIDE RECORDS SUMMARY | 2024-04-30 03:53 | XMS_ITS | Encounter Summary ---
Author Organization [facility] [place] [address] Care Team Providers Care A/C Tech Name Role Phone Radha Rossi MD Primary Care Provider [phone] Reason for Visit * Reason Comments Post Op Encounter Details Date Type Department Care Team (Late st Contact Info) Description 12/21/2019 8:00 AM EST Office Visit Ophthalmology at [facility] [place] [address] Bassem Jane MD [facility] [place] [address] [address]ula[place] OS ([id number] 10/16/19) Social History [...] as of this encounter Progress Notes * Bassem Jane MD - 12/21/2019 8:00 AM EST ASSESSMENT/PLAN: No diagnosis found. Visual Acuity Visual Acuity (Snellen - Linear) Right Left Dist sc 20/20 -1 20/50 -1 Dist ph sc 20/40 -2 Near cc 20/20 20/25 Tonometry Tonometry (Applanation, 7:59 AM) Right Left Pressure [address] OS (s/p [id number] 10/16/19) - inferior PVR s/p LR 2/13/20 Today 12/21/2019 [facility] continues to improve, the inferior PVR is stable thanks to the previous prophylactic laser. Will continue to monitor 1mo MRx OS, DFE, OCT OU Bassem Jane MD, PhD documented in this encounter Plan of Treatment Not on file documented as of this encounter Visit Diagnoses Diagnosis Macula-off RD OS ([id number] 10/16/19) documented in this encounter Care Teams A/C Tech Relationship Specialty Start Date End Date Radha Rossi MD [address] [place] [address] PCP - General 11/30/13 documented as of this encounter
--- OUTSIDE RECORDS SUMMARY | 2024-04-30 03:53 | XMS_ITS | Encounter Summary ---
Author Organization [facility] [place] [address] Care Team Providers Care Gang Pusher Name Role Phone Radha Rossi MD Primary Care Provider [phone] Reason for Visit * Reason Comments Right Hand Pain right small finger x iaflex release Encounter Details Date Type Department Care Team (Late st Contact Info) Description 05/07/2015 7:55 AM EDT Office [place] [phone] Nigel Quinonez MD [facility] [address] [place] [address] Dupuytren's contracture of both hands Discharge Disposition: [...] Sign Reading Time Taken Comments Blood Pressure 151/88 05/07/2015 7:47 AM EDT Pulse 79 05/07/2015 7:47 AM EDT Temperature - - Respiratory Rate - - Oxygen Saturation - - Inhaled Oxygen Concentration - - Weight 70.3 kg (155 lb) 05/07/2015 7:47 AM EDT s tated Height 163.8 cm (5' 4.5) 05/07/2015 7:47 AM EDT stated Body Mass Index 26.19 05/07/2015 7:47 AM EDT documented in this encounter Progress Notes * Nigel Quinonez MD - 05/07/2015 8:14 AM EDT Juan Perez is 48 hours following Xiaflex injection into his right small finger pretendinous and spiral cords. He comes back for manipulation. He does have some pain radiating up to his axilla. He has minimal bruising and swelling in his palm. There is no evidence of skin tear. His flexor function remains intact. A preinjection time-out was done and under sterile conditions, the palmar surface of the small finger ray was infiltrated with 10 mL of 1% lidocaine. He tolerated this well. I then proceeded to manipulate his cords. I was able to obtain complete extension of the MCP joint and reduced his PIP contracture to about 30 degrees in the small finger. His flexor function remained intact. He does appear to have capsular tightness at the PIP joint which he will work on with home stretching. A sterile dressing was applied. He did have some small skin tears measuring about 2 mm over the proximal phalanx and as well as over the metacarpal region. These are very minimal and I expect will heal fairly promptly. I will see him for this in about in 6 weeks. He may cancel that appoint if he is doing well. Currently, he does not wish to treat his left hand Dupuytren's disease. documented in this encounter Plan of Treatment Not on file documented as of this encounter Visit Diagnoses Diagnosis Dupuytren's contracture of both hands Contracture of palmar fascia documented in this encounter Care Teams Gang Pusher Relationship Specialty Start Date End Date Radha Rossi MD [address] [place] [address] PCP - General 11/30/13 documented as of this encounter
--- OUTSIDE RECORDS SUMMARY | 2024-04-30 03:53 | XMS_ITS | Encounter Summary ---
Author Organization [facility] [place] [address] Care Team Providers Care Lung Puller Name Role Phone Radha Rossi MD Primary Care Provider [phone] Reason for Visit * Reason Comments Right Hand Pain right small finger x iaflex injection Encounter Details Date Type Department Care Team (Late st Contact Info) Description 05/05/2015 7:55 AM EDT Office [place] [phone] Nigel Quinonez MD [facility] DR OR[place]OPAED[place] [address] Dupuytren's contracture of both hands Discharge Disposition: [...] Sign Reading Time Taken Comments Blood Pressure 150/88 05/05/2015 7:49 AM EDT Pulse 103 05/05/2015 7:49 AM EDT Temperature - - Respiratory Rate - - Oxygen Saturation - - Inhaled Oxygen Concentration - - Weight 70.3 kg (155 lb) 05/05/2015 7:49 AM EDT s tated Height 163.8 cm (5' 4.5) 05/05/2015 7:49 AM EDT stated Body Mass Index 26.19 05/05/2015 7:49 AM EDT documented in this encounter Progress Notes * Nigel Quinonez MD - 05/05/2015 8:17 AM EDT Juan Perez presents today for Xiaflex therapy for his right small finger. His PIP contracture measures about 95 degrees today and his MCP contracture is about 65 degrees. He can flex his fingers into his palm. He was offered Xiaflex therapy. He was told the risks of this include but are not limited to recurrence, incomplete or no release of the contracture, bruising, bleeding, swelling, lymphangitis, skin tearing at the time of rupture, flexor tendon nerve or nerve rupture and allergic reaction. He chose to proceed. A preinjection time-out was done. Under sterile conditions, the pretendinous and spiral cords of the right small finger were injected with 0.9 mg of Xiaflex. He tolerated this well. A sterile soft dressing was applied. He will see me back in two days for cord rupture. documented in this encounter Plan of Treatment Not on file documented as of this encounter Visit Diagnoses Diagnosis Dupuytren's contracture of both hands Contracture of palmar fascia documented in this encounter Care Teams Lung Puller Relationship Specialty Start Date End Date Radha Rossi MD [address] [place] [address] PCP - General 11/30/13 documented as of this encounter
--- OUTSIDE RECORDS SUMMARY | 2024-04-30 03:53 | XMS_ITS | Encounter Summary ---
Author Organization [facility] [place] [address] Care Team Providers Care Rocket Engine Mechanic Name Role Phone Radha Rossi MD Primary Care Provider [phone] Reason for Visit * Reason Comments Procedure Encounter Details Date Type Department Care Team (Latest Contact Info) Description 10/11/2019 4:15 PM EST Procedure visit Ophthalmology at [facility] [place] [address] Bassem Jane MD [facility] [place] [address] Macula-off rhegmatogenous retinal detachment, left Social History [...] Patient Instructions* Bassem Jane MD - 10/11/2019 4:15 PM EST DROPS: Tobradex drops left eye every 4 hours while awake POSITIONING: Please keep a face down position [...] tall mountains etc) documented in this encounter Plan of Treatment Not on file documented as of this encounter Procedures Procedure Name Priority Date/Time Associated Diagnosis Comments PNEUMATIC RETINOPEXY/GAS INJECTION - OS - LEFT EYE Routine 10/11/2019 5:54 PM EST Macula-off rhegmatogenous retinal detachment, left documented in this encounter Results * Pneumatic Retinopexy/Gas Injection - OS - Left Eye (10/11/2019 5:54 PM EST) Anatomical Region Laterality Modality Other Narrative 10/11/2019 5:54 PM EST Pre-Op Patient understands the risks and benefits of the treatment as outlined on the consent. Anesthesia Subconjunctival anesthesia was used. Anesthetic medications included Lidocaine 2%. Procedure Preparation included 5% betadine to ocular surface. A 30 gauge needle was used. Post injection medications were not given. Post injection exam found visual acuity of at least counting fingers, perfused optic nerve. During the procedure a 5% betadine solution was applied, a sterile speculum was placed and removed, paracentesis was performed. Post-op The patient tolerated the procedure well. There were no complications. The patient received written and verbal post procedure care education. Notes Aspirated 0.2ml of aqueous humor through the limbus temporally and injected 0.2 ml [id number] through the pars plana at 2:00 o'clock Bassem Jane MD [facility] ORDERABLES documented in this encounter Visit Diagnoses Diagnosis Macula-off rhegmatogenous retinal detachment, left documented in this encounter Care Teams Rocket Engine Mechanic Relationship Specialty Start Date End Date Radha Rossi MD [address] [place] [address] PCP - General 11/30/13 documented as of this encounter
--- OUTSIDE RECORDS SUMMARY | 2024-04-30 03:53 | XMS_ITS | Encounter Summary ---
Author Organization [facility] [place] [address] Care Team Providers Care Family Advocate Name Role Phone Radah Rossi MD Primary Care Provider [phone] Encounter Details Date Type Department Care Team (Late st Contact Info) Description 10/15/2019 12:53 PM EST - 10/15/2019 2:51 PM EST Surgery Main Operating Room Formerly [facility] [place] [address] Bassem Jane MD [facility] [place] [address] REPAIR RETINAL DETACHMENT W/ VITRECTOMY, SCLERAL BUCKLE; AIR,GAS,OIL,LASER,CRYO (WRVU 17.13) Social History Tobacco Use Types Packs/Day Years [...] Sign Reading Time Taken Comments Blood Pressure 168/68 10/15/2019 11:20 AM EST Pulse 88 10/15/2019 11:20 AM EST Temperature 37.9 ??C (100.2 ??F) 10/15/2019 11:20 AM EST Respiratory Rate 18 10/15/2019 11:20 AM EST Oxygen Saturation 99% 10/15/2019 11:20 AM EST Inhaled Oxygen Concentration - - Weight 68 kg (150 lb) 10/15/2019 11:20 AM EST Height 163.8 cm (5' 4.5) 10/15/2019 11:20 AM ES T Body Mass Index 25.35 10/15/2019 11:20 AM EST documented in this encounter Discharge Instructions * Discharge Instructions* Lily Munoz RN - 10/15/2019 4:12 PM EST POST ANESTHESIA INSTRUCTIONS Go home, rest, use caution on stairs. Change positions slowly. Do not smoke if you are alone. Diet light to regular as tolerated today. If nausea occurs start with clear liquids and progress slowly. No driving, operating machinery, alcoholic beverages and no important decisions for 24 hours. Monitor IV site for signs and symptoms of infection: increasing redness, swelling, foul drainage, if occurs contact M.D. Patients who have had endotrachial tubes (this tube, used by anesthesia department, is passed down your throat after you are asleep, to ensure safe air passage during your operation). A sore throat is normal due to the tube. Cold liquids or soothing lozenges will help ease the discomfort. The generalized muscle aches are due to the medication given to you just before the tube is inserted. As the medication wears off, you may develop muscle soreness, which usually goes away in 12-24 hours. * Patient Instructions* Bassem Jane MD - 10/15/2019 3:28 PM EST DROPS: Please keep the patch on the operated eye and do NOT use any eye drops on the operated eye the first day after the surgery. You will start them right after your post-op day 1 exam. Please continue using the standard eye drops in the other eye (if you already use any) POSITIONING: Please keep the right side of the face down (ie the right cheekbone and right side of the nose touching the pillow) for ~50mins/hour while awake or asleep. It's ok to take a ~10 minute break every hour. WARNING SYMPTOMS People frequently feel mild-moderate discomfort that improves within a few days. Eyelid edema and redness are also common for a few weeks. However, if you feel new pain, tenderness, light sensitivity and vision loss please call the [facility] telephone center ([phone]) immediately and speak to the broach grinder digital content manager. PAIN May use over the counter pain medications as needed (Tylenol 1000mg- up to 3 times daily) alternating with ibuprofen (600mg up to 3 times per day) EYE SHIELD: Keep eye shield on the eye overnight. OTHERS Avoid lifting heavy weights for 1 week (i.e. Not more than 5-10 lbs) Avoid high impact activities (e.g. Weight lifting, running) for at least 1 week Avoid straining- valsalva, retching, vomiting, coughing as much as possible FLIGHTS: Do NOT take any flights until you discuss it with your doctor. There's severe risk for the eye if you're in areas of high altitude (flight, very tall mountains etc) documented in this encounter Medications at Time of Discharge Medication Sig Dispensed Refills Start Date End Date VIAGRA 100 mg Tablet Take 100 mg by mouth as needed. 02/08/2015 amLODIPine-benazepril (LOTREL) 5-20 mg Capsule Take 1 capsule by mouth daily. 11/10/2014 aspirin 81 mg Tablet, Chewable Take 81 mg by mouth daily. multivitamin with minerals (THERA-M) 9-0.4 mg Tablet Take 1 tablet by mouth daily. tobramycin-dexamethasone (TOBRADEX) Drops, Suspension Place 1 drop into the left eye 4 times daily. 5 mL 5 10/11/2019 10/24/2019 documented as of this encounter Progress Notes * Lily Munoz RN - 10/15/2019 4:12 PM EST Patient alert and oriented, vital signs stable. Reviewed discharge instructions; patient and verbalized understanding. Copy of instruction sheet with contact numbers for questions/concerns with eye patch. Pain assessment documented. Patient escorted out of department via wheelchair with . documented in this encounter H&P Notes * Bassme Jane MD - 10/15/2019 1:06 PM EST Patient Name: Juan Perez Patient Age: 64 y.o. Birthdate: 1955 Admit date: 10/15/2019 Attending Physician: Bassem Jane MD History and Physical Reviewed. No changes noted. Ok to proceed with eye surgery as planned. documented in this encounter Miscellaneous Notes * Op Note - Bassem Jane MD - 10/15/2019 3:29 PM EST [facility] [place] Patient Name: Juan Perez : [id number] MR#: [id number] Case Date: 10/15/2019 Surgeon: Surgeon(s) and Role: * Bassem Jane MD - Primary Preoperative diagnosis: Macula-off retinal Detachment left eye Postoperative diagnosis: Macula-off retinal Detachment, iris defect left eye Procedure(s) (LRB): REPAIR RETINAL DETACHMENT W/ VITRECTOMY, SCLERAL BUCKLE; AIR,GAS,OIL,LASER,CRYO (WRVU 15.19) (Left) REPAIR OF IRIS,CILIARY BODY (WRVU 6.39) (Left) Anesthesia: General with LMA and peribulbar clock Estimated Blood Loss: * No values recorded between 10/15/2019 2:12 PM and 10/15/2019 3:23 PM * Specimens removed during surgery: None Drains: * No LDAs found * Surgical Closure: Primary Closure - skin incision is completely closed without any wires, juanita, drains or other devices Disposition: awakened from anesthesia, extubated and taken to the recovery room in a stable condition, having suffered no apparent untoward event. Condition: doing well without problems (Please see the Surgical Encounter Summary for any Implant and Specimen details pertinent to this patient.) HPI/Surgical Indications: Macula-off retinal Detachment left eye Procedure Description: DESCRIPTION OF PROCEDURE: The patient was brought to the operative suite at the [facility] where a time-out was done to confirm correct eye, correct patient, and correct procedure. General anesthesia was induced and maintained throughout the case without complications.The left eye was prepped and draped in the normal sterile fashion for intraocular surgery and a wire lid speculum was used throughout the case to retract the eyelids. Using the Kelvin 25-gauge vitrectomy system, trocars were placed in the inferotemporal, superotemporal and superonasal quadrants approximately 3.5 mm from the limbus. An infusion cannula was placed inthe inferotemporal quadrant and its position was confirmed by direct visualization with the light pipe before it was turned on. Using the vitrector and the light pipe, the eye was entered and close examination of the retina revealed retina detachment and a single retinal hole at 1:00 while the anterior segment exam was significant for a small superonasal iris defect. The McCannel technique and a single 9-0 prolene suture were used to close the superonasal iris defect without complications. At the end of the procedure the pupil was round and centered. A 360 core vitrectomy was performed and the vitreous was shaved out to the base as safely as possible while the assistant executive housekeeper was depressing the sclera. Careful exam with scleral depression revealed a single retinal break at 1:00 that was lasered (continuous laser, 160mw, 20 spots). Fluid-air exchange was performed followed by air-gas exchange (16% C3F8) Each of the trocars was removed sequentially, the sclerotomies were closed with 6-0 plain gut sutures and the eye was left adequately pressurized, air and watertight. The Barraquer tonometer showed an IOP of ~15mmHg. Subconjunctival injection of cefazolin (100mg/0.3ml) and dexamethasone (2mg/0.5ml)as well as a peribulbar injection of marcaine 0.75% were given. A drop of vigamox and antibiotic ointment were placed in the eye followed by a patch and shield. The patient was awoken from sedation and brought to the recovery room in stable condition.They have follow up in the retina clinic in 1 day. Infection Bundle used? No Attestation: Case Date: 10/15/2019 I performed this procedure without the involvement of a resident. Bassem Jane MD 10/15/2019 documented in this encounter Plan of Treatment Not on file documented as of this encounter Procedures Procedure Name Priority Date/Time Associated Diagnosis Comments REPAIR OF IRIS,CILIARY BODY Routine 10/15/2019 3:38 PM EST Macula-off rhegmatogenous retinal detachment, left Repair Iris/Ciliary Body (72156) Yes 10/15/2019 1:36 PM EST Macula-off rhegmatogenous retinal detachment, left Repair Detach Retina, W Vitrectomy ([id number]) Yes 10/15/2019 1:36 PM EST Macula-off rhegmatogenous retinal detachment, left documented in this encounter Visit Diagnoses Diagnosis Macula-off rhegmatogenous retinal detachment, left Macula-off rhegmatogenous retinal detachment, left documented in this encounter Administered Medications Inactive Administered Medications - up to 3 most recent administrations Medication Order MAR Action Action Date Dose Rate Site acetaminophen (Tylenol) tablet 1,000 mg 1,000 mg, Oral, ONCE, 1 dose, On Tue10/15/19 at 1145, Administer with SIP of H2O only., Day of Surgery (Day of Procedure), Routine Given 10/15/2019 11:30 AM EST 1,000 mg atropine 1 % ophthalmic solution 1 drop 1 drop, Left Eye, EVERY 5 MIN, 3 doses, First dose on Tue10/15/19 at 1145, Last dose on Tue10/15/19 at 1155, Day of Surgery (Day of Procedure), Routine Given 10/15/2019 11:40 AM EST 1 drop Given 10/15/2019 11:35 AM EST 1 drop Given 10/15/2019 11:28 AM EST 1 drop balanced salt (BSS PLUS) irrigation solution ONCE PRN, Starting on Tue10/15/19 at 1440, Until Tue10/15/19 at 1833, Intra-Operative (Intra-Procedure), Routine Given 10/15/2019 2:40 PM EST 1 Bottle 19- Surgical Site balanced salt (BSS) irrigation solution ONCE PRN, Starting on Tue10/15/19 at 1440, Until Tue10/15/19 at 1833, Intra-Operative (Intra-Procedure), Routine Given 10/15/2019 2:40 PM EST 2 Bottles 19- Surgical Site ceFAZolin (Ancef) injection ONCE PRN, Starting on Tue10/15/19 at 1441, Until Tue10/15/19 at 1833, Intra-Operative (Intra-Procedure), Routine Given 10/15/2019 2:41 PM EST 100 mg 19- Surgical Site dexamethasone (DECADRON) injection ONCE PRN, Starting on Tue10/15/19 at 1441, Until Tue10/15/19 at 1833, Intra-Operative (Intra-Procedure), Routine Given 10/15/2019 2:41 PM EST 2 mg 19- Surgical Site lactated ringers infusion 1,000 mL, at 100 mL/hr, Intravenous, CONTINUOUS, Starting on Tue10/15/19 at 1145, Until Tue10/15/19 at 1611, Day of Surgery (Day of Procedure) New Bag 10/15/2019 1:34 PM EST New Bag 10/15/2019 11:38 AM EST 1,000 mLs 100 mL/hr moxifloxacin (VIGAMOX) 0.5 % ophthalmic solution 1 drop 1 drop, Left Eye, EVERY 5 MIN, 3 doses, First dose on Tue10/15/19 at 1145, Last dose on Tue10/15/19 at 1155, Day of Surgery (Day of Procedure), Routine Given 10/15/2019 11:40 AM EST 1 drop Given 10/15/2019 11:35 AM EST 1 drop Given 10/15/2019 11:29 AM EST 1 drop moxifloxacin (VIGAMOX) 0.5 % ophthalmic solution ONCE PRN, Starting on Tue10/15/19 at 1442, Until Tue10/15/19 at 1833, Intra-Operative (Intra-Procedure), Routine Given 10/15/2019 2:42 PM EST 1 drop 19- Surgical Site PHENYLephrine (MYDFRIN) 2.5 % ophthalmic solution 1 drop 1 drop, Left Eye, EVERY 5 MIN, 3 doses, First dose on Tue10/15/19 at 1145, Last dose on Tue10/15/19 at 1155, Day of Surgery (Day of Procedure), Routine Given 10/15/2019 11:40 AM EST 1 drop Given 10/15/2019 11:36 AM EST 1 drop Given 10/15/2019 11:29 AM EST 1 drop povidone-iodine 5 % ophthalmic solution ONCE PRN, Starting on Tue10/15/19 at 1442, Until Tue10/15/19 at 1833, Intra-Operative (Intra-Procedure), Routine Given 10/15/2019 2:42 PM EST 30 mLs prednisoLONE acetate (PRED FORTE) 1 % ophthalmic suspension 1 drop 1 drop, Left Eye, ONCE, 1 dose, On Tue10/15/19 at 1145, Day of Surgery (Day of Procedure), Routine Given 10/15/2019 11:29 AM EST 1 drop Sodium Hyaluronate Syrg ONCE PRN, Starting on Tue10/15/19 at 1443, Until Tue10/15/19 at 1833, Intra-Operative (Intra-Procedure) Given 10/15/2019 2:43 PM EST 1 each 19- Surgical Site tetracaine (PF) (PONTOCAINE) ophthalmic solution ONCE PRN, Starting on Tue10/15/19 at 1400, Until Tue10/15/19 at 1833, Intra-Operative (Intra-Procedure), Routine Given 10/15/2019 2:00 PM EST 1 drop documented in this encounter Active and Recently Administered Medications Times are shown in EST. Scheduled Medication Order 10/13/2019 10/14/2019 10/15/2019 acetaminophen (Tylenol) tablet 1,000 mg (COMPLETED) 1,000 mg, Oral, ONCE, 1 dose, On Tue10/15/19 at 1145, Administer with SIP of H2O only., Day of Surgery (Day of Procedure), Routine 1130 (Given - Provid er: Syl Lee RN) atropine 1 % ophthalmic solution 1 drop (COMPLETED) 1 drop, Left Eye, EVERY 5 MIN, 3 doses, First dose on Tue10/15/19 at 1145, Last dose on Tue10/15/19 at 1155, Day of Surgery (Day of Procedure), Routine 1128 (Given - Provid er: Syl Lee RN)1135 (Given - Provider: Syl Lee RN)1140 (Given - Provider: Syl Lee RN) moxifloxacin (VIGAMOX) 0.5 % ophthalmic solution 1 drop (COMPLETED) 1 drop, Left Eye, EVERY 5 MIN, 3 doses, First dose on Tue10/15/19 at 1145, Last dose on Tue10/15/19 at 1155, Day of Surgery (Day of Procedure), Routine 1129 (Given - Provid er: Syl Lee RN)1135 (Given - Provider: Syl Lee RN)1140 (Given - Provider: Syl Lee RN) PHENYLephrine (MYDFRIN) 2.5 % ophthalmic solution 1 drop (COMPLETED) 1 drop, Left Eye, EVERY 5 MIN, 3 doses, First dose on Tue10/15/19 at 1145, Last dose on Tue10/15/19 at 1155, Day of Surgery (Day of Procedure), Routine 1129 (Given - Provid er: Syl Lee RN)1136 (Given - Provider: Syl Lee RN)1140 (Given - Provider: Syl Lee RN) prednisoLONE acetate (PRED FORTE) 1 % ophthalmic suspension 1 drop (COMPLETED) 1 drop, Left Eye, ONCE, 1 dose, On Tue10/15/19 at 1145, Day of Surgery (Day of Procedure), Routine 1129 (Given - Provid er: Syl Lee RN) Continuous Medication Order 10/13/2019 10/14/2019 10/15/2019 lactated ringers infusion (CANCELED) 1,000 mL, at 100 mL/hr, Intravenous, CONTINUOUS, Starting on Tue10/15/19 at 1145, Until Tue10/15/19 at 1611, Day of Surgery (Day of Procedure) 1138 (New Bag - Prov ider: Syl Lee RN)1334 (New Bag - Provider: Luz Crook MD)1541 (Anesthesia Volume Adjustment - Provider: Luz Crook MD) sodium chloride 0.9% infusion 1,000 mL, at 100 mL/hr, Intravenous, CONTINUOUS, Starting on Tue10/15/19 at 1615, Until Tue10/15/19 at 1833 1615 (Due) PRN Medication Order 10/13/2019 10/14/2019 10/15/2019 acetaminophen (Tylenol) tablet 650 mg 650 mg, Oral, EVERY 4 HOURS PRN, Starting on Tue10/15/19 at 1527, Until Tue10/15/19 at 1833, Pain, for MILD pain (1-3), Do not exceed 4,000 mg in 24 hours, Routine balanced salt (BSS PLUS) irrigation solution (CANCELED) ONCE PRN, Starting on Tue10/15/19 at 1440, Until Tue10/15/19 at 1833, Intra-Operative (Intra-Procedure), Routine 1440 (Given - Provid er: Bassem Jane MD) balanced salt (BSS) irrigation solution (CANCELED) ONCE PRN, Starting on Tue10/15/19 at 1440, Until Tue10/15/19 at 1833, Intra-Operative (Intra-Procedure), Routine 1440 (Given - Provid er: Bassem Jane MD) ceFAZolin (Ancef) injection (CANCELED) ONCE PRN, Starting on Tue10/15/19 at 1441, Until Tue10/15/19 at 1833, Intra-Operative (Intra-Procedure), Routine 144 (Given - Provid er: Bassem Jane MD - Comment: post op subconj injection) dexamethasone (DECADRON) injection (CANCELED) ONCE PRN, Starting on Tue10/15/19 at 1441, Until Tue10/15/19 at 1833, Intra-Operative (Intra-Procedure), Routine 144 (Given - Provid er: Bassem Jane MD - Comment: post op subconjunctival injection) ibuprofen (Advil;Motrin) tablet 800 mg 800 mg, Oral, EVERY 6 HOURS PRN, Starting on Tue10/15/19 at 1527, Until Tue10/15/19 at 1833, Pain, for MODERATE pain (4-6), Should be used concomitantly if other analgesics are ordered. Do not administer with ketorolac., Routine ibuprofen (Advil;Motrin) tablet 800 mg 800 mg, Oral, EVERY 6 HOURS PRN, Starting on Tue10/15/19 at 1559, Until Tue10/15/19 at 1833, Pain, for MODERATE pain (4-6), Should be used concomitantly if other analgesics are ordered. Do not administer with ketorolac., Routine moxifloxacin (VIGAMOX) 0.5 % ophthalmic solution (CANCELED) ONCE PRN, Starting on Tue10/15/19 at 1442, Until Tue10/15/19 at 1833, Intra-Operative (Intra-Procedure), Routine 144 (Given - Provid er: Bassem Jane MD - Comment: post op) povidone-iodine 5 % ophthalmic solution (CANCELED) ONCE PRN, Starting on Tue10/15/19 at 1442, Until Tue10/15/19 at 1833, Intra-Operative (Intra-Procedure), Routine 144 (Given - Provid er: Julisa Louis RN - Comment: prep) Sodium Hyaluronate Syrg (CANCELED) ONCE PRN, Starting on Tue10/15/19 at 1443, Until Tue10/15/19 at 1833, Intra-Operative (Intra-Procedure) 1443 (Given - Provid er: aBssem Jane MD) tetracaine (PF) (PONTOCAINE) ophthalmic solution (CANCELED) ONCE PRN, Starting on Tue10/15/19 at 1400, Until Tue10/15/19 at 1833, Intra-Operative (Intra-Procedure), Routine 1400 (Given - Provid er: Julisa Louis RN - Comment: before prep) documented in this encounter Care Teams Family Advocate Relationship Specialty Start Date End Date Radha Rossi MD [address] [place] [address] PCP - General 11/30/13 documented as of this encounter
--- OUTSIDE RECORDS SUMMARY | 2024-04-30 03:53 | XMS_ITS | Encounter Summary ---
Author [facility] [place] [address] Care Team Providers Care Emts Name Role Phone Radha Rossi MD Primary Care Provider [phone] Encounter Details Date Type Department Care Team (Late st Contact Info) Description 11/30/2013 1:30 PM EST Office Visit Dermatology at [address] [id number] Peter Goodman MD [address] [place] [address] [place] [address] Basal cell carcinoma (Primary Dx) Social History Tobacco Use Types Packs/Day Years Used Date Smoking Tobacco: Never Assessed Sex and Gender Information Value Date Recorded Sex Assigned at Not on file Gender Identity Not on file Sexual Orientation Not on file documented as of this encounter Progress Notes * Peter Goodman MD - 11/30/2013 2:10 PM EST Problem: Glabellar lesion. Agustin is a 58-year-old gentleman who has worked in the [employer] business for some 30-odd years. While in preparation for a cataract surgery with Dr. Anderson, he was seen by Dr. Diaz who noted a pearly nodule on the mid glabella. His has been urging him to have this checked for the last five years. Occasionally it bleeds. He is accompanied today by his , Aniya. Physical examination reveals a pleasant 58-year-old gentleman who has a somewhat dark, pearly discolored nodule 1.2 cm in diameter with central crusting and erosion concerning for BCCA. The remainder of the sun exposed skin examination is benign. Assessment and Plan: BCCA, probable, glabella. a. After obtaining informed consent site was anesthetized and shave C and D times three performed. b. Triple antibiotic ointment and Band-Aid placed. Wound care instructions and supplies given. We will notify the patient of biopsy results when these are available in about a week. Return to clinic here will be on a p.r.n. basis. COPY: Rocky Diaz O.D. Dr. Rossi documented in this encounter Plan of Treatment Not on file documented as of this encounter Visit Diagnoses Diagnosis Basal cell carcinoma- Primary Basal cell carcinoma of skin, site unspecified documented in this encounter Care Teams Emts Relationship Specialty Start Date End Date Radha Rossi MD [address] [place] [address] PCP - General 11/30/13 documented as of this encounter
--- OUTSIDE RECORDS SUMMARY | 2024-04-30 03:53 | XMS_ITS | Encounter Summary ---
Author Organization [facility] [place] [address] Care Team Providers Care Cold Rolling Machine Setter Name Role Phone Radha Rossi MD Primary Care Provider [phone] Encounter Details Date Type Department Care Team (Latest Contact Info) Description 10/15/2019 10:52 AM EST - 10/15/2019 4:33 PM EST Hospital Encounter Same Day Program at [facility] [address] Bassem Jane MD [facility] [place] [address] Macula-off rhegmatogenous retinal detachment, left Discharge Disposition: Home Social History Tobacco Use [...] sensitivity and vision loss please call the [facility] telephone center ([phone]) immediately and speak to the fisher hand line front office administrator. PAIN May use over the counter pain [...] documented in this encounter H&P Notes * Bassem Jane MD - 10/15/2019 1:06 PM EST Patient Name: Juan Perez Patient Age: 64 y.o. Birthdate: 1955 Admit date: 10/15/2019 Attending Physician: Bassem Jane MD History and Physical Reviewed. No changes noted. Ok to proceed with eye surgery as planned. documented in this encounter Miscellaneous Notes * Op Note - Bassem Jane MD - 10/15/2019 3:29 PM EST [facility] Operative Note Patient Name: Juan Perez : [id number] MR#: [id number] Case Date: 10/15/2019 Surgeon: Surgeon(s) and Role: [...] brought to the operative suite at the [facility] where a time-out was done to confirm [...] base as safely as possible while the residential living assistant was depressing the sclera. Careful exam with [...] rhegmatogenous retinal detachment, left Repair Iris/Ciliary Body ([id number]) Yes 10/15/2019 1:36 PM EST Macula-off rhegmatogenous retinal detachment, left Repair Detach Retina, W Vitrectomy ([id number]) Yes 10/15/2019 1:36 PM EST Macula-off rhegmatogenous [...] Given 10/15/2019 11:28 AM EST 1 drop lactated ringers infusion 1,000 mL, at 100 [...] Given 10/15/2019 11:29 AM EST 1 drop PHENYLephrine (MYDFRIN) 2.5 % ophthalmic solution 1 drop 1 drop, Left Eye, EVERY 5 MIN, 3 doses, First dose on Tue10/15/19 at 1145, Last dose on Tue10/15/19 at 1155, Day of Surgery (Day of Procedure), Routine Given 10/15/2019 11:40 AM EST 1 drop Given 10/15/2019 11:36 AM EST 1 drop Given 10/15/2019 11:29 AM EST 1 drop prednisoLONE acetate (PRED FORTE) 1 % ophthalmic suspension 1 drop 1 drop, Left Eye, ONCE, 1 dose, On Tue10/15/19 at 1145, Day of Surgery (Day of Procedure), Routine Given 10/15/2019 11:29 AM EST 1 drop documented in this encounter [...] Until Tue10/15/19 at 1833, Intra-Operative (Intra-Procedure), Routine 1442 (Given - Provid er: Julisa Louis RN - Comment: prep) Sodium Hyaluronate Syrg (CANCELED) ONCE PRN, Starting on Tue10/15/19 at 1443, Until Tue10/15/19 at 1833, Intra-Operative (Intra-Procedure) 1443 (Given - Provid er: Bassem Jane MD) tetracaine (PF) (PONTOCAINE) ophthalmic solution (CANCELED) ONCE PRN, Starting on Tue10/15/19 at 1400, Until Tue10/15/19 at 1833, Intra-Operative (Intra-Procedure), Routine 1400 (Given - Provid er: Julisa Louis RN - Comment: before prep) documented in this encounter Care Teams Cold Rolling Machine Setter Relationship Specialty Start Date End Date Radha Rossi MD [address] [place] [address] PCP - General 11/30/13 documented as of this encounter
--- OUTSIDE RECORDS SUMMARY | 2024-04-30 03:53 | XMS_ITS | Encounter Summary ---
Author Organization [facility] [place] [address] Care Team Providers Care Cath Lab Tech Name Role Phone Radha Rossi MD Primary Care Provider [phone] Encounter Details Date Type Department Care Team (Late st Contact Info) Description 01/07/2015 Orders [place] [address] Nigel Quinonez MD [facility] [place] [address] Left hand pain Social History Tobacco Use Types Packs/Day Years Used Date Smoking Tobacco: Never Assessed Sex and Gender Information Value Date Recorded Sex Assigned at Not on file Gender Identity Not on file Sexual Orientation Not on file documented as of this encounter Plan of Treatment Not on file documented as of this encounter Results * XR hand diagnostic [...] Diagnosis Left hand pain Pain in limb Left hand pain Pain in limb documented in this encounter Care Teams Cath Lab Tech Relationship Specialty Start Date End Date Radha Rossi MD [address] [place] [address] PCP - General 11/30/13 documented as of this encounter
--- OUTSIDE RECORDS SUMMARY | 2024-04-30 03:53 | XMS_ITS | Encounter Summary ---
Author Organization [facility] [place] [address] Care Team Providers Care Patient Appointment Coordinator Name Role Phone Radha Rossi MD Primary Care Provider [phone] Reason for Visit * Reason Comments Detached Retina Encounter Details Date Type Department Care Team (Latest Contact Info) Description 06/10/2021 9:30 AM EDT Office Visit Ophthalmology at [facility] [place] [address] Basesm Jane MD [facility] [place] [address] [address] OS (PPV-C3F8 10/16/19); PVD (posterior vitreous detachment), right eye; Macula-off rhegmatogenous retinal detachment, left Social History [...] Progress Notes * Bassem Jane MD - 06/10/2021 9:30 AM EDT ASSESSMENT/PLAN: 1. Macula-off RD OS (PPV-C3F8 10/16/19) 2. PVD (posterior vitreous detachment), right eye 3. Macula-off rhegmatogenous retinal detachment, left Visual Acuity Visual Acuity (Snellen - Linear) Right Left Dist sc 20/20 20/60 +2 Dist ph sc 20/40 -1 Near cc 20/20 20/25-2 Tonometry Tonometry (Applanation, 10:15 AM) Right Left Pressure [address] OS (s/p PPV-C3F8 10/16/19) - with post-op inferior PVR s/p LR 11/29/19 Today 06/10/[address] new tears or RD. Monitor Follow up in 1 year for DFE, OCT OU I, Amy Mcrae, have performed the documentation for this encounter [...] Procedure Name Priority Date/Time Associated Diagnosis Comments OCT RETINA - OU - BOTH EYES Routine 06/10/2021 10:56 AM EDT Macula-off rhegmatogenous retinal detachment, left PVD (posterior vitreous detachment), right eye documented in this encounter Results * OCT Retina - OU - Both Eyes (06/10/2021 10:56 AM EDT) Anatomical Region Laterality Modality Other Narrative 06/10/2021 10:56 AM EDT Right Eye Quality was good. Scan locations included subfoveal. Progression has been stable. Findings include subretinal scarring, normal foveal contour. Left Eye Quality was good. Scan locations included subfoveal. Progression has been stable. Findings include subretinal scarring, normal foveal contour. Bassem Jane MD OPHTHALMOLOGY SERVICES ORDERABLES documented in this encounter Visit Diagnoses Diagnosis Macula-off RD OS (PPV-C3F8 10/16/19) PVD (posterior vitreous detachment), right eye Vitreous degeneration documented in this encounter Care Teams Patient Appointment Coordinator Relationship Specialty Start Date End Date Radha Rossi MD [address] [place] [place] [address] PCP - General 11/30/13 documented as of this encounter
--- OUTSIDE RECORDS SUMMARY | 2024-04-30 03:53 | XMS_ITS | Encounter Summary ---
Author Organization Formerly [facility] [place] [address] Care Team Providers Care Motors And Generators Inspector Name Role Phone Radha Rossi MD Primary Care Provider [phone] Reason for Visit * Reason Comments Detached Retina Encounter Details Date Type Department Care Team (Late st Contact Info) Description 01/24/2020 9:15 AM EDT Office Visit Ophthalmology at [facility] [place] [address] Bassem Jane [place] [facility] [place] [address] [address] OS (PPV-C3F8 10/16/19) Social History [...] Progress Notes * Bassem Jane MD - 01/24/2020 9:15 AM EDT ASSESSMENT/PLAN: 1. Macula-off RD OS (PPV-C3F8 10/16/19) Visual Acuity Visual Acuity (Snellen - Linear) Right Left Dist sc 20/20 20/60 Dist ph sc 20/30 -1 Near cc 20/25 20/60 Tonometry Tonometry (Tonopen, 9:38 AM) Right Left Pressure [address] OS (s/p PPV-C3F8 10/16/19) - with post-op inferior PVR s/p LR 11/29/19 Today 01/24/2020 VA has improved further, and the inferior PVR remains stable thanks to the previous prophylactic laser. Will continue to monitor. RD precautions given. MRx taken in clinic today and given to patient. Follow up in 1 year for DFE, OCT OU I, Jonel Lu, [...] 10/16/19) documented in this encounter Care Teams Motors And Generators Inspector Relationship Specialty Start Date End Date Radha Rossi MD [address] [place] [address] PCP - General 11/30/13 documented as of this encounter
--- OUTSIDE RECORDS SUMMARY | 2024-04-30 03:53 | XMS_ITS | Encounter Summary ---
Author Organization [facility] [place] [address] Care Team Providers Care Cell Tower Climber Name Role Phone Radha Rossi MD Primary Care Provider [phone] Encounter Details Date Type Department Care Team (Late st Contact Info) Description 10/12/2019 9:45 AM EST Office Visit Ophthalmology at [facility] [place] [address] Bassem Jane MD [facility] [place] [address] [address] OS (pneumatic displacement with C3F8 10/11/19) Social History Tobacco Use Types Packs/Day Years [...] Progress Notes * Bassem Jane MD - 10/12/2019 9:45 AM EST ASSESSMENT/PLAN: 1. Macula-off RD OS (pneumatic displacement with C3F8 10/11/19) 1. Retinal detachment, left eye (Dx 09/2019) - s/p pneumatic displacement with C3F8 Today 10/12/19 POD1 HCK after pneumatic. Thanks to the gas bubble most of the subretinal fluid has decreased. Nevertheless the final treatment will be PPV. Continue face down position and tobradex QID until the dayof surgery on 10/15/19. Of note, Juan Perez will have the vitrectomy surgery under local anesthesia/monitored anesthesia care, and the procedure is considered a low-risk procedure with minimal blood loss. Follow up for surgery and HCK I, [...] encounter Visit Diagnoses Diagnosis Macula-off RD OS (pneumatic displacement with C3F8 10/11/19) documented in this encounter Care Teams Cell Tower Climber Relationship Specialty Start Date End Date Radha Rossi MD [address] [place] [address] PCP - General 11/30/13 documented as of this encounter
--- OUTSIDE RECORDS SUMMARY | 2024-04-30 03:53 | XMS_ITS | Encounter Summary ---
Author Organization [facility] [place] [address] Care Team Providers Care Warping Machine Operator Name Role Phone Radha Rossi MD Primary Care Provider [phone] Reason for Visit * Reason Comments Procedure Encounter Details Date Type Department Care Team (Latest Contact Info) Description 11/29/2019 5:30 PM EST Procedure visit Ophthalmology at [facility] [place] [address] Bassem Jane MD [place] [address] [address] OS (PPV-C3F8 10/16/19); Macula-off rhegmatogenous retinal detachment, left Social History [...] Patient Instructions* Bassem Jane MD - 11/29/2019 5:30 PM EST The doctor recommended laser retinopexy. [...] artificial tears sometimes helps. Activity restrictions: A) If the laser was done for the treatment of a retinal tear/detachment please avoid any high impact activities such as long distance running, heavy weight lifting (i.e. More than 20lbs), contact sports (e.g. boxing, basketball etc) for 2 weeks. It's ok however to do most of your basic daily activities including sports with low impact (swimming, bike riding, walking on treadmill etc) B) These limitations do not apply to those who had Panretinal photocoagulation laser for diabeticretinopathy. These patients can continue their previous daily activities documented in this encounter Plan of Treatment Not on file documented as of this encounter Procedures Procedure Name Priority Date/Time Associated Diagnosis Comments PROPHYLAXIS RETINA DETACH, LASER - OS - LEFT EYE Routine 11/30/2019 11:02 AM EST Macula-off rhegmatogenous retinal detachment, left documented in this encounter Results * Prophylaxis Retina Detach, Laser - OS - Left Eye (11/30/2019 11:02 AM EST) Anatomical Region Laterality Modality Other Narrative 11/30/2019 11:02 AM EST Pre-Op Patient understands the risks and benefits of the treatment as outlined on the consent. Anesthesia Subconjunctival anesthesia was used. Laser Information The type of laser was argon. Color was green. The duration in seconds was 100.0. The spot size was 200 microns. Laser power was 300.0. Total spots was 899. Post-op The patient tolerated the procedure well. There were no complications. The patient received written and verbal post procedure care education. Bassem Jane MD OPHTHALMOLOGY SERVICES ORDERABLES documented in this encounter Visit Diagnoses Diagnosis Macula-off RD OS (PPV-C3F8 10/16/19) Macula-off rhegmatogenous retinal detachment, left documented in this encounter Care Teams Warping Machine Operator Relationship Specialty Start Date End Date Radha Rossi MD [address] [place] [address] PCP - General 11/30/13 documented as of this encounter
--- OUTSIDE RECORDS SUMMARY | 2024-04-30 03:53 | XMS_ITS | Encounter Summary ---
Author Organization [facility] [place] [address] Care Team Providers Care Retail Area Manager Name Role Phone Radha Rossi MD Primary Care Provider [phone] Reason for Visit * Reason Onset Date Comments Referral 01/02/2015 Encounter Details Date Type Department Care Team (Late st Contact Info) Description 01/02/2015 Telephone [place] [address] Patricia Stone Referral Social History Tobacco Use Types Packs/Day Years Used Date Smoking Tobacco: Never Assessed Sex and Gender Information Value Date Recorded Sex Assigned at Not on file Gender Identity Not on file Sexual Orientation Not on file documented as of this encounter Miscellaneous Notes * Telephone Encounter - Albertina Bennett - 01/08/2015 7:35 AM EDT Received 24 pages from Jarvis [place] P.T. 01/08/15 Progress Notes. * Telephone Encounter - Chantell Gruber - 01/07/2015 9:06 AM EDT Ask the patient to verify the following: Full Name: Juan Perez : 1955 Phone number: [phone] (home) Mailing address: [address] [place] [id number] Age: 59 y.o. Appointment date: 03/12/2015 Appointment is with: JESSE Reason #1 Injury/Complaint: LEFT HAND Dupuytren's surgery Date of injury/complaint: NO DOI Is this a new injury? No Is this a 2nd opinion? Yes Appointment type: 18-100 Adult - Not sports related Is this Workers Comp? No How long have you had these symptoms? FEW years Records Retrieval Most recent physical exam: No X-rays: No MRI: No CT Scan: No Physical therapy: Yes - When? Where? Who? Notes: 09/2014 JARVIS IVONNEJENNIFER PT [facility] [phone] JARVIS TALHA Injection: No Other diagnostic studies: No Other therapies: No Other specialist(s): No If 2nd (+) opinion get info on previous: Yes - What? When? Where? Who? Notes: LEFT HAND PAIN 08/2014 [place], [place] PH: [phone] FAX: [phone] GARCIA NOTES IN [place] Have you had any surgeries for this issue? Yes - What? When? Where? Who? Notes: Dupuytren's surgery [facility] DR GARCIA [place] Did surgery include placement of implant/hardware or fixation of any kind? No Do you use any type of orthotics? No Additional injuries: Advanced Directive Do you have an Advanced Directive on file: Yes Advance Directive elevator pilot: N/A MyDH Do you have a [facility] account? No - Patient Declined * Telephone Encounter - Patricia Wynn - 01/02/2015 10:54 AM EDT Left message for patient to call back and schedule referral documented in this encounter Plan of Treatment Not on file documented as of this encounter Visit Diagnoses Not on filedocumented in this encounter Care Teams Retail Area Manager Relationship Specialty Start Date End Date Radha Rossi MD [address] [place] [address] PCP - General 11/30/13 documented as of this encounter
--- OUTSIDE RECORDS SUMMARY | 2024-04-30 03:53 | XMS_ITS | Clinical Summary ---
Author Organization [facility] Address [address] [place] [address] Care Team Providers Care Bulb Grower Name Role Phone Unknown, Provider Primary Care Provider Social History Tobacco Use Types Packs/Day Years Used Date Smoking Tobacco: Never Assessed Sex and Gender Information Value Date Recorded Sex Assigned at Not on file Gender Identity Not on file Sexual Orientation Not on file Plan of Treatment Health Maintenance Due Date Last Done Comments Hepatitis C Screen 1955 RSV Immunization ( o r 60+ Years) (1 - 1-dose 60+ series) 2014 Fall Risk Screening 2019 COVID-19 Vaccine (24 season) 2023 Care Teams Bulb Grower Relationship Specialty Start Date End Date Unknown, Provider, PCP - General 09/30/14
--- OUTSIDE RECORDS SUMMARY | 2024-04-30 03:53 | XMS_ITS | Encounter Summary ---
Author Organization [facility] [place] [address] Care Team Providers Care Ampoule Filler And Sealer Name Role Phone Radha Rossi MD Primary Care Provider [phone] Encounter Details Date Type Department Care Team (Late st Contact Info) Description 03/27/2015 Orders [place] [address] Nigel Quinonez MD [facility] [address] [place] [address] Dupuytren contracture Social History Tobacco Use Types Packs/Day Years [...] as of this encounter Visit Diagnoses Diagnosis Dupuytren contracture Contracture of palmar fascia documented in this encounter Care Teams Ampoule Filler And Sealer Relationship Specialty Start Date End Date Radha Rossi MD [address] [place] [place], [place] [address] PCP - General 11/30/13 documented as of this encounter
--- OUTSIDE RECORDS SUMMARY | 2024-04-30 03:53 | XMS_ITS | Encounter Summary ---
Author Organization [facility] [place] [address] Care Team Providers Care Tile Mason Name Role Phone Radha Rossi MD Primary Care Provider [phone] Reason for Visit * Reason Comments Detached Retina Macula Off OS S/P PP V,C3F8 10/16/19 Encounter Details Date Type Department Care Team (Late st Contact Info) Description 06/25/2022 9:15 AM EDT Office Visit Ophthalmology at [facility] [place] [address] Bassem Jane MD [facility] [place] [address] [address] OS (PPV-C3F8 10/16/19); PVD (posterior vitreous detachment), right eye Social [...] Progress Notes * Bassem Jane MD - 06/25/2022 9:15 AM EDT ASSESSMENT/PLAN: 1. Macula-off RD OS (PPV-C3F8 10/16/19) 2. PVD (posterior vitreous detachment), right eye Visual Acuity Visual Acuity (Snellen - Linear) Right Left Dist sc 20/25 20/50 -1 Dist ph sc 20/20 -1 20/30 -1 Near cc 20/20 20/40 Tonometry Tonometry (Applanation, 9:20 AM) Right Left Pressure [address] OS (s/p PPV-C3F8 10/16/19) - with post-op inferior PVR s/p LR 11/29/19 Today 06/25/2022 Good anatomic outcome without late complications. The inferior PVR-RD is well demarcated with LR and stable. Monitor 2. Dry AMD OU Mild, monitor Follow up with Dr. Thomas in 9-12mo Follow up with Retina PRN I, Kristian Paz, have performed the documentation for this encounter in the presence of, and acting asa scribe for Bassem Jane MD PhD. I performed the services which were documented by thescrimegan, and I agree with the accuracy of the documentation in this encounter. Bassem Jane MD PhD. documented in this encounter Plan of Treatment Not on file documented as of this encounter Procedures Procedure Name Priority Date/Time Associated Diagnosis Comments OCT RETINA - OU - BOTH EYES Routine 06/25/2022 10:03 AM EDT Macula-off RD OS (PPV-C3F8 10/16/19) PVD (posterior vitreous detachment), right eye documented in this encounter Results * OCT Retina - OU - Both Eyes (06/25/2022 10:03 AM EDT) Anatomical Region Laterality Modality Other Narrative 06/25/2022 10:03 AM EDT Right Eye Quality was good. [...] degeneration documented in this encounter Care Teams Tile Mason Relationship Specialty Start Date End Date Radha Rossi MD [address] [place] [address] PCP - General 11/30/13 documented as of this encounter
--- OUTSIDE RECORDS SUMMARY | 2024-04-30 03:53 | XMS_ITS | Encounter Summary ---
Author Organization [facility] [place] [address] Care Team Providers Care Director Information Security Name Role Phone Radha Rossi MD Primary Care Provider [phone] Reason for Visit * Reason Comments Detached Retina Macula-off RD OS (PP V-C3F8 10/16/19) Encounter Details Date Type Department Care Team (Late st Contact Info) Description 12/07/2019 7:30 AM EST Office Visit Ophthalmology at [facility] [address] Bassem Jane MD [facility] [place] [address] [address] OS (PPV-C3F8 10/16/19) Social History [...] Progress Notes * Bassem Jane MD - 12/07/2019 7:30 AM EST ASSESSMENT/PLAN: No diagnosis found. Visual Acuity Visual Acuity (Snellen - Linear) Right Left Dist sc 20/25 -1 20/50 -1 Dist ph sc 20/20 -1 20/40 -2 Near cc 20/20 20/25 Tonometry Tonometry (Applanation, 8:01 AM) Right Left Pressure [address] OS (s/p PPV-C3F8 10/16/19) - inferior PVR 11/29/19 Today 12/07/2019 The PVR is stable thanks to the previous prophylactic laser. The patient denies visual field defects. Will continue to monitor Follow up in 2 week for DFE OS Bassem Jane MD, PhD documented in this encounter Plan of Treatment Not on file documented as of this encounter Visit Diagnoses Diagnosis Macula-off RD OS (PPV-C3F8 10/16/19) documented in this encounter Care Teams Director Information Security Relationship Specialty Start Date End Date Radha Rossi MD [address] [place] [address] PCP - General 11/30/13 documented as of this encounter
[2024-04-30 08:12] LABS: Hemoglobin A1C 5.3 % (<5.7)
[2024-04-30 08:25] LABS: Anion Gap 10.1 mmol/L (3-11); BUN 10 mg/dL (7-18); CO2 27.9 mmol/L (21.0-32.0); CREATININE 0.8 mg/dL (0.70-1.30); Calcium 10.1 mg/dL (8.5-10.1); Calculated LDL 101 mg/dL (<100); Chloride 96 mmol/L (98-107); Cholesterol 194 mg/dL (<200); Glucose 112 mg/dL (74-106); HDL Cholesterol 85 mg/dL (40-60); Potassium 4.4 mmol/L (3.5-5.1); Sodium 134 mmol/L (136-145); Triglyceride 43 mg/dL (<150)
== END 2024-04-30 03:52 | disposition home or self-care (01) ==
LOC: LBO 03:52
PROVIDERS: PCP Nurse Practitioner Adult Health; Referring Provider Nurse Practitioner Adult Health; Visit Provider Nurse Practitioner Adult Health
DX: E78.5 Hyperlipidemia, unspecified (principal); I10 Essential (primary) hypertension; R73.01 Impaired fasting glucose
CPT/HCPCS: 36415; 80048; 80061; 83036

== ENCOUNTER 2024-11-16 00:42 | Outpatient (CLI) | payer MEDICARE, SELFPAY ==
--- OUTSIDE RECORDS SUMMARY | 2024-11-16 00:43 | XMS_ITS | Clinical Summary ---
Author Organization [facility] Address [address] [place] [address] Care Team Providers Care Ironworker Apprentice Name Role Phone Unknown, Provider Primary Care Provider Unava ilable Social History Tobacco Use Types Packs/Day Years Used Date Smoking Tobacco: Never Assessed Sex and Gender Information Value Date Recorded Sex Assigned at Not on file Legal Sex Male 9:23 EST Gender Identity Not on file Sexual Orientation Not on file Plan of Treatment Health Maintenance Due Date Last Done Comments Hepatitis C Screen 1955 Fall Risk Screening 2019 COVID-19 Vaccine (2023-25 season) 2024 RSV Immunization ( o r 60+ Years) (1 - 1-dose 75+ series) 2029 Care Teams Ironworker Apprentice Relationship Specialty Start Date End Date Unknown, Provider, PCP - General 09/30/14
--- OUTSIDE RECORDS SUMMARY | 2024-11-16 00:43 | XMS_ITS | Encounter Summary ---
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
--- OUTSIDE RECORDS SUMMARY | 2024-11-16 00:43 | XMS_ITS | Encounter Summary ---
Author Organization [facility] [place] [address] Care Team Providers Care Journeyman Lineman Name Role Phone Radha Rossi MD Primary Care Provider [phone] Encounter Details Date Type Department Care Team (Late st Contact Info) Description 10/16/2019 12:15 PM EST Office Visit [place] [address] Bassem Jane MD Macula-off RD OS (PPV-C3F8 [...] Dose: 1 Drop Eye: Prednisolone Acetate 1% [place] or White 4 times per day Operated [...] light sensitivity and/or tenderness please call the [facility] Appcelerator center ([phone]) PAIN: May use over the counter pain [...] next week for POW#1 visit I, Jonel Y. Tabitha, have performed the documentation for this encounter [...] 10/16/19) documented in this encounter Care Teams Journeyman Lineman Relationship Specialty Start Date End Date Radha Rossi MD [address] [place] [address] PCP - General 11/30/13 10/25/24 documented as of this encounter
--- OUTSIDE RECORDS SUMMARY | 2024-11-16 00:43 | XMS_ITS | Encounter Summary ---
Author Organization [facility] [address] Care Team Providers Care Head Of Digital Name Role Phone Radha Rossi MD Primary Care Provider [phone] Reason for Visit * Reason Comments Post Op Encounter Details Date Type Department Care Team (Late st Contact Info) Description 12/21/2019 8:00 AM EST Office [place] [address] Bassem Jane MD Macula-off RD OS (PPV-C3F8 [...] monitor 1mo MRx OS, DFE, OCT OU Dimosthenis Mantopoulos, MD, PhD documented in this encounter Plan of Treatment Not on file documented as of this encounter Visit Diagnoses Diagnosis Macula-off RD OS (PPV-C3F8 10/16/19) documented in this encounter Care Teams Head Of Digital Relationship Specialty Start Date End Date Radha Rossi MD [address] [place] [address] PCP - General 11/30/13 10/25/24 documented as of this encounter
--- OUTSIDE RECORDS SUMMARY | 2024-11-16 00:43 | XMS_ITS | Encounter Summary ---
Author Organization [facility] [place] [address] Care Team Providers Care Arcade Technician Name Role Phone Radha Rossi MD Primary Care Provider [phone] Reason for Visit * Reason Comments Post Op Encounter Details Date Type Department Care Team (Late st Contact Info) Description 10/24/2019 10:30 AM EST Office Visit Ophthalmology at [facility] [place] [address] Bassem Jane MD Macula-off RD OS (PPV-C3F8 [...] Dose: 1 Drop Eye: Prednisolone Acetate 1% [place] or White 2 times per day Until [...] sensitivity and vision loss please call the [facility] telephone center ([phone]) immediately and speak to the golf shoe spike assembler stone circular sawyer. PAIN May use over the counter pain [...] Visit Diagnoses Diagnosis Macula-off RD OS (PPV-C3F8 12/31/19) documented in this encounter Care Teams Arcade Technician Relationship Specialty Start Date End Date Radha Rossi MD [address] [place] [address] PCP - General 11/30/13 10/25/24 documented as of this encounter
--- OUTSIDE RECORDS SUMMARY | 2024-11-16 00:43 | XMS_ITS | Encounter Summary ---
[place] [address] Care Team Providers Care Aircraft Electrical Systems Specialist Name Role Phone Radha Rossi MD Primary Care Provider [phone] Reason for Visit * Reason Comments Detached Retina Macula Off OS S/P PP V,C3F8 10/16/19 Encounter Details Date Type Department Care Team (Late st Contact Info) Description 06/25/2022 9:15 AM EDT Office [place] [address] Bassem Jane MD Macula-off RD OS (PPV-C3F8 10/16/19); PVD (posterior [...] performed the services which were documented by delfina, and I agree with the accuracy of [...] degeneration documented in this encounter Care Teams Aircraft Electrical Systems Specialist Relationship Specialty Start Date End Date Radha Rossi MD [address] [place] [address] PCP - General 11/30/13 10/25/24 documented as of this encounter
--- OUTSIDE RECORDS SUMMARY | 2024-11-16 00:43 | XMS_ITS | Referral Summary ---
Author Organization [facility] Address [address] [place] [address] Care Team Providers Care Farmworker Chicken Farm Name Role Phone Unknown, Provider Primary Care Provider Unava ilable Social History Tobacco Use Types Packs/Day Years Used Date Smoking Tobacco: Never Assessed Sex and Gender Information Value Date Recorded Sex Assigned at Not on file Legal Sex Male 9:23 EST Gender Identity Not on file Sexual Orientation Not on file Plan of Treatment Not on file Care Teams Farmworker Chicken Farm Relationship Specialty Start Date End Date Unknown, Provider, PCP - General 09/30/14
--- OUTSIDE RECORDS SUMMARY | 2024-11-16 00:43 | XMS_ITS | Clinical Summary ---
Author Organization [facility] Address [facility] [place] [address] Care Team Providers Care Brake Repairer Bus Name Role Phone Inactive, Pcp External Primary Care Provider Isabell vailable Allergies No known active allergies Medications Medication [...] Hepatitis C Screening 1972 Lipid Screening 1972 Tetanus/Diphtheria/Pertussis Vaccines (1 - Tdap) 06/23 Pneumoccocal Vaccine: 50+ (1 of 1 - PCV) 2004 Zoster vaccine (1 of 2) 2004 Advance Directive 2009 Covid-19 Vaccine (1 - 2023- season) 2024 Influenza (Flu) vaccine (1 o f 1 - Influenza standard series) 06/17/2024 Care Teams Brake Repairer Bus Relationship Specialty Start Date End Date Inactive, Pcp External PCP - General 11/02/24
--- OUTSIDE RECORDS SUMMARY | 2024-11-16 00:43 | XMS_ITS | Encounter Summary ---
Author Organization [facility] Address [address] [place] [address] Care Team Providers Care Stitch Welder Name Role Phone Unknown, Provider Primary Care Provider Unava ilable Encounter Details Date Type Department Care Team (Latest Contact Info) Description 10/02/2014 11:04 EST - 10/02/2014 23:59 EST Hospital Encounter [address] [address] Unknown, ProviderMD Discharge Disposition: Home or Self Care Social History Tobacco Use Types Packs/Day Years Used Date Smoking Tobacco: Never Assessed Sex and Gender Information Value Date Recorded Sex Assigned at Not on file Legal Sex Male 9:23 EST Gender Identity Not on file Sexual Orientation Not on file documented as of this encounter Discharge Disposition Disposition Code Departure Means Destination Home or Self Nursing Home documented in this encounter Plan of Treatment Not on file documented as of this encounter Visit Diagnoses Not on filedocumented in this encounter Care Teams Stitch Welder Relationship Specialty Start Date End Date Unknown, ProviderMD PCP - General 09/30/14 documented as of this encounter
--- OUTSIDE RECORDS SUMMARY | 2024-11-16 00:43 | XMS_ITS | Encounter Summary ---
Author Organization [facility] [place] [address] Care Team Providers Care Heel Stainer Name Role Phone Radha Rossi MD Primary Care Provider [phone] Reason for Visit * Reason Comments Detached Retina Encounter Details Date Type Department Care Team (Latest Contact Info) Description 06/10/2021 9:30 AM EDT Office [place] [phone] Bassem Jane MD Macula-off RD OS (PPV-C3F8 [...] degeneration documented in this encounter Care Teams Heel Stainer Relationship Specialty Start Date End Date Radha Rossi MD [address] [place] [address] PCP - General 11/30/13 10/25/24 documented as of this encounter
--- OUTSIDE RECORDS SUMMARY | 2024-11-16 00:43 | XMS_ITS | Encounter Summary ---
Author Organization [facility] [place] [address] Care Team Providers Care Police Detective Name Role Phone Radha Rossi MD Primary Care Provider [phone] Reason for Visit * Reason Comments Detached Retina Encounter Details Date Type Department Care Team (Late st Contact Info) Description 01/24/2020 9:15 AM EDT Office Visit Ophthalmology at [facility] [place] [address] Bassem Jane MD Macula-off RD OS (PPV-C3F8 [...] - with post-op inferior PVR s/p LR 20 Today 01/24/2020 [facility], and [...] 10/16/19) documented in this encounter Care Teams Police Detective Relationship Specialty Start Date End Date Radha Rossi MD [address] [place] [address] PCP - General 11/30/13 10/25/24 documented as of this encounter
--- OUTSIDE RECORDS SUMMARY | 2024-11-16 00:43 | XMS_ITS | Encounter Summary ---
Author Organization [facility] Address [address] [place] [address] Care Team Providers Care Color Specialist Name Role Phone Unknown, Provider Primary Care Provider Unava ilable Encounter Details Date Type Department Care Team (Late st Contact Info) Description 09/27/[address] [facility] ([facility] [address], [place] [id number] Arjun Garcia MD [address] [place] [phone] Social History Tobacco Use Types Packs/Day [...] ? FÁTIMA AKINS ? Accession #: ? [id number] ? : ? 1955 (Age: 59) ??M [...] Rios 09/30/2014 09:34 AM End of Report [facility] 09/27/2014 9:24 EST 09/28/2014 9:24 EST us Arjun Garcia MD PATHOLOGY ORDERABLES Final Result [facility] [address] [place] [address] documented in this encounter Visit Diagnoses Not on filedocumented in this encounter Care Teams Color Specialist Relationship Specialty Start Date End Date Unknown, Provider, PCP - General 09/30/14 documented as of this encounter
--- OUTSIDE RECORDS SUMMARY | 2024-11-16 00:43 | XMS_ITS | Encounter Summary ---
Author Organization [facility] [place] [address] Care Team Providers Care Audio Production Instructor Name Role Phone Radha Rossi MD Primary Care Provider [phone] Reason for Visit * Reason Comments Procedure Encounter Details Date Type Department Care Team (Latest Contact Info) Description 11/29/2019 5:30 PM EST Procedure [place] [address] Bassem Jane MD Macula-off RD OS (PPV-C3F8 10/16/19); Macula-off rhegmatogenous [...] left documented in this encounter Care Teams Audio Production Instructor Relationship Specialty Start Date End Date Radha Rossi MD [address] [place] [address] PCP - General 11/30/13 10/25/24 documented as of this encounter
--- OUTSIDE RECORDS SUMMARY | 2024-11-16 00:43 | XMS_ITS | Encounter Summary ---
Author [facility] [place] [address] Care Team Providers Care Main Galley Scullion Name Role Phone Radha Rossi MD Primary Care Provider [phone] Reason for Visit * Reason Comments Post Op Macula-off RD OS (PP V-C3F8 10/16/19) Encounter Details Date Type Department Care Team (Late st Contact Info) Description 11/29/2019 2:15 PM EST Office [place] [address] Bassem Jane MD Macula-off RD OS (PPV-C3F8 [...] 10/16/19) documented in this encounter Care Teams Main Galley Scullion Relationship Specialty Start Date End Date Radha Rossi MD [address] [place] [address] PCP - General 11/30/13 10/25/24 documented as of this encounter
--- OUTSIDE RECORDS SUMMARY | 2024-11-16 00:43 | XMS_ITS | Encounter Summary ---
Author Organization [facility] [place] [address] Care Team Providers Care Novelty Balloon Assembler And Packer Name Role Phone Radha Rossi MD Primary Care Provider [phone] Reason for Visit * Reason Onset Date Comments Appointment 01/19/2020 Encounter Details Date Type Department Care Team (Late st Contact Info) Description 01/19/2020 [place] [address] Bassem Jane MD Appointment Social History Tobacco Use Types Packs/Day [...] they need to have a code. CODE 93669 documented in this encounter Plan of Treatment Not on file documented as of this encounter Visit Diagnoses Not on filedocumented in this encounter Care Teams Novelty Balloon Assembler And Packer Relationship Specialty Start Date End Date Radha Rossi MD [address] [place] [address] PCP - General 11/30/13 10/25/24 documented as of this encounter
--- OUTSIDE RECORDS SUMMARY | 2024-11-16 00:44 | XMS_ITS | Encounter Summary ---
Author Organization [facility] [place] [address] Care Team Providers Care Patient Intake Coordinator Name Role Phone Radha Rossi MD Primary Care Provider Reason for Visit * Reason Comments Right Hand Pain right small finger x iaflex release Encounter Details Date Type Department Care Team (Late st Contact Info) Description 05/07/2015 7:55 AM EDT Office [place] [address] Nigel Quinonez MD [facility] [place] [address] Dupuytren's contracture of both hands Discharge Disposition: [...] fascia documented in this encounter Care Teams Patient Intake Coordinator Relationship Specialty Start Date End Date Radha Rossi MD [address] [place] [address] PCP - General 11/30/13 10/25/24 documented as of this encounter
--- OUTSIDE RECORDS SUMMARY | 2024-11-16 00:44 | XMS_ITS | Encounter Summary ---
Author Organization [facility] [place] [address] Care Team Providers Care Baggage Agent Supervisor Name Role Phone Radha Rossi MD Primary Care Provider [phone] Reason for Visit * Reason Comments Right Hand Pain right small finger x iaflex injection Encounter Details Date Type Department Care Team (Late st Contact Info) Description 05/05/2015 7:55 AM EDT Office Visit [place] [phone] Nigel Quinonez MD [facility] [place] [address] Dupuytren's contracture of both hands Discharge Disposition: [...] fascia documented in this encounter Care Teams Baggage Agent Supervisor Relationship Specialty Start Date End Date Radha Rossi MD [address] [place] [address] PCP - General 11/30/13 10/25/24 documented as of this encounter
--- OUTSIDE RECORDS SUMMARY | 2024-11-16 00:44 | XMS_ITS | Encounter Summary ---
Author Organization [facility] [place] [address] Care Team Providers Care Creative Lead Name Role Phone Radha Rossi MD Primary Care Provider [phone] Encounter Details Date Type Department Care Team (Late st Contact Info) Description 11/30/2013 1:30 PM EST Office Visit Dermatology at [address] [place] [address] Peter Goodman MD [address], [place] [address] Basal cell carcinoma (Primary Dx) Social History [...] 58-year-old gentleman who has worked in the [employer] business for some 30-odd years. While in [...] unspecified documented in this encounter Care Teams Creative Lead Relationship Specialty Start Date End Date Radha Rossi MD [address] [place] [address] PCP - General 11/30/13 10/25/24 documented as of this encounter
--- OUTSIDE RECORDS SUMMARY | 2024-11-16 00:44 | XMS_ITS | Encounter Summary ---
Author Organization [facility] Address [facility] [place] [address] Care Team Providers Care Junior Systems Analyst Name Role Phone Radha Rossi MD Primary Care Provider [phone] Encounter Details Date Type Department Care Team (Late st Contact Info) Description 03/12/2015 11:52 AM EDT - 03/12/2015 11:59 PM EDT Hospital Encounter XRay at [address] [place] [address] Left hand pain Social History Tobacco Use [...] limb documented in this encounter Care Teams Junior Systems Analyst Relationship Specialty Start Date End Date Radha Rossi MD [address] [place] [address] PCP - General 11/30/13 10/25/24 documented as of this encounter
--- OUTSIDE RECORDS SUMMARY | 2024-11-16 00:44 | XMS_ITS | Encounter Summary ---
Author Organization [facility] [address] Care Team Providers Care Manager System Name Role Phone Radha Rossi MD Primary Care Provider [phone] Reason for Visit * Reason Onset Date Comments Referral 01/02/2015 Encounter Details Date Type Department Care Team (Late st Contact Info) Description 01/02/2015 [place] [address] Patricia Stone Referral Social History Tobacco Use [...] Name: Juan Perez : 1955 Phone number: [phone] (home) Mailing address: [address] [place] [phone] Age: 59 y.o. Appointment date: 03/12/2015 Appointment [...] - When? Where? Who? Notes: 09/2014 JARVIS ANDINO PT [facility] [phone] JARVIS WYJENNIFER Injection: No Other diagnostic studies: No Other therapies: No Other specialist(s): No If 2nd (+) opinion get info on previous: Yes - What? When? Where? Who? Notes: LEFT HAND PAIN 08/2014 [place], [place] PH: [phone] FAX: [phone] GARCIA NOTES IN EDH [...] Advanced Directive on file: Yes Advance Directive java tech lead: N/A MyDH Do you have a [facility] account? No - Patient Declined * Telephone Encounter - Patricia Wynn - 01/02/2015 10:54 AM EDT Left message for patient to call back and schedule referral documented in this encounter Plan of Treatment Not on file documented as of this encounter Visit Diagnoses Not on filedocumented in this encounter Care Teams Manager System Relationship Specialty Start Date End Date Radha Rossi MD [address] [place] [address] PCP - General 11/30/13 10/25/24 documented as of this encounter
--- OUTSIDE RECORDS SUMMARY | 2024-11-16 00:44 | XMS_ITS | Encounter Summary ---
Author Organization [facility] [place] [address] Care Team Providers Care Signal Apprentice Name Role Phone Radha Rossi MD Primary Care Provider [phone] Encounter Details Date Type Department Care Team (Latest Contact Info) Description 10/15/2019 10:52 AM EST - 10/15/2019 4:33 PM EST Hospital Encounter [place] [address] Bassem Jane MD Macula-off rhegmatogenous retinal detachment, left Discharge Disposition: [...] sensitivity and vision loss please call the [facility] Disco center ([phone]) immediately and speak to the obstetrical tech global compensation manager. PAIN May use over the counter [...] Jane MD - 10/15/2019 3:29 PM EST [facility] Operative Note Patient Name: Juan Perez : [id number] MR#: [id number] Case Date: 10/15/2019 Surgeon: Surgeon(s) and Role: [...] brought to the operative suite at the [facility] where a time-out was done to confirm [...] as safely as possible while the assistant professor of business was depressing the sclera. Careful exam with [...] rhegmatogenous retinal detachment, left Repair Iris/Ciliary Body (43211) Yes 10/15/2019 1:36 PM EST Macula-off rhegmatogenous retinal detachment, left Repair Detach Retina, W Vitrectomy (67390) Yes 10/15/2019 1:36 PM EST Macula-off rhegmatogenous [...] Until Tue10/15/19 at 1833, Intra-Operative (Intra-Procedure), Routine 1441 (Given - Provid er: Bassem Jane MD - Comment: post op subconj injection) dexamethasone (DECADRON) injection (CANCELED) ONCE PRN, Starting on Tue10/15/19 at 1441, Until Tue10/15/19 at 1833, Intra-Operative (Intra-Procedure), Routine 1441 (Given - Provid er: Bassem Jane MD [...] (Intra-Procedure), Routine 1442 (Given - Provid er: Bassem Jane MD [...] prep) documented in this encounter Care Teams Signal Apprentice Relationship Specialty Start Date End Date Radha Rossi MD [address] [place] [address] PCP - General 11/30/13 10/25/24 documented as of this encounter
--- OUTSIDE RECORDS SUMMARY | 2024-11-16 00:44 | XMS_ITS | Encounter Summary ---
Author Organization [facility] [place] [address] Care Team Providers Care Open Hearth Furnace Operator Name Role Phone Radha Rossi MD Primary Care Provider [phone] Encounter Details Date Type Department Care Team (Late st Contact Info) Description 10/15/2019 1:34 PM EST Anesthesia [place] [address] Shaheen Bo MD [facility] [place] [address] Anesthesia Record Procedure Summary Procedure Name Responsible [...] 1136; median cubital vein (antecubital fossa), right; drlr-hhl-slnmih catheter system; 20 gauge; distraction, tolerated well; [...] Procedure Summary Date: 10/15/19 Room / Location: [facility] OR [address] [place] [address] MAIN OR Anesthesia Start: 1334 Anesthesia Stop: 1541 Procedures: REPAIR RETINAL DETACHMENT W/ VITRECTOMY, SCLERAL BUCKLE; AIR,GAS,OIL,LASER,CRYO (WRVU 15.19) (Left Eye) REPAIR OF IRIS,CILIARY BODY (WRVU 6.39) (Left Eye) Diagnosis: Macula-off rhegmatogenous retinal detachment, left (Retinal Detachment left eye) Surgeon: Bassem Jane MD Responsible Provider: Shaheen Bo MD Anesthesia Type: MAC ASA Status: 2 All Anesthesia Providers: Anesthesiologist: Shaheen Bo MD Dry Mill Operator: Luz Crook MD Vitals Value Taken Time BP Temp Pulse Resp SpO2 98 % 10/15/2019 3:42 PM Pain Level Vitals shown include unvalidated device data. Patient Location: PACU/[facility] Level of Consciousness: Awake and Alert Pain [...] CATARACT EXTRACTION, EXTRACAPSULAR, W/ LENS INSERTION Bilateral [id number] PCIOL OU - [facility] ??? RETINOPATHY SURGERY [...] mg documented in this encounter Care Teams Open Hearth Furnace Operator Relationship Specialty Start Date End Date Radha oRssi MD [address] [place] [address] PCP - General 11/30/13 10/25/24 documented as of this encounter
--- OUTSIDE RECORDS SUMMARY | 2024-11-16 00:44 | XMS_ITS | Encounter Summary ---
Author Organization [facility] [address] Care Team Providers Care Regulatory Services Consultant Name Role Phone Radha Rossi MD Primary Care Provider [phone] Encounter Details Date Type Department Care Team (Late st Contact Info) Description 10/12/2019 9:45 AM EST Office [place] [address] Bassem Jane MD Macula-off RD OS (pneumatic displacement with C3F8 [...] 10/11/19) documented in this encounter Care Teams Regulatory Services Consultant Relationship Specialty Start Date End Date Radha Rossi MD [address] [place] [address] PCP - General 11/30/13 10/25/24 documented as of this encounter
--- OUTSIDE RECORDS SUMMARY | 2024-11-16 00:44 | XMS_ITS | Encounter Summary ---
Author Organization Formerly [facility] Address [facility] [place] [address] Care Team Providers Care Airborne Operations Manager Name Role Phone Radha Rossi MD Primary Care Provider [phone] Reason for Visit * Reason Comments Left Hand Pain left long, ring, sma ll finger dupuytrens contractures s/p surgery osh 09/27/2014 Encounter Details Date Type Department Care Team (Late st Contact Info) Description 03/12/2015 1:25 PM EDT Office [place] [address] Nigel Quinonez MD [facility] [place] [address] Dupuytren's contracture of both hands Discharge Disposition: [...] 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 [...] fascia documented in this encounter Care Teams Airborne Operations Manager Relationship Specialty Start Date End Date Radha Rossi MD [address] [place] [address] PCP - General 11/30/13 10/25/24 documented as of this encounter
--- OUTSIDE RECORDS SUMMARY | 2024-11-16 00:44 | XMS_ITS | Encounter Summary ---
[place] [address] Care Team Providers Care Rotary Swaging Machine Operator Name Role Phone Radha Rossi MD Primary Care Provider [phone] Encounter Details Date Type Department Care Team (Late st Contact Info) Description 10/15/2019 12:53 PM EST - 10/15/2019 2:51 PM EST Surgery [place] [phone] Bassem Jane MD REPAIR RETINAL DETACHMENT W/ VITRECTOMY, SCLERAL BUCKLE; [...] sensitivity and vision loss please call the [facility] telephone center ([phone]) immediately and speak to the printed circuit board pcb designer telephone cleaner. PAIN May use over the counter pain [...] Jane MD - 10/15/2019 3:[address] [facility] Operative Note Patient Name: Juan Perez : [id number] MR#: [id number] Case Date: 10/15/2019 Surgeon: Surgeon(s) and Role: [...] brought to the operative suite at the [facility] where a time-out was done to confirm [...] base as safely as possible while the minister assistant was depressing the sclera. Careful exam [...] rhegmatogenous retinal detachment, left Repair Iris/Ciliary Body ([id number]) Yes 10/15/2019 1:36 PM EST Macula-off rhegmatogenous retinal detachment, left Repair Detach Retina, W Vitrectomy ([id number]) Yes 10/15/2019 1:36 PM EST Macula-off rhegmatogenous [...] prep) documented in this encounter Care Teams Rotary Swaging Machine Operator Relationship Specialty Start Date End Date Radha Rossi MD [address] [place] [address] PCP - General 11/30/13 10/25/24 documented as of this encounter
--- OUTSIDE RECORDS SUMMARY | 2024-11-16 00:44 | XMS_ITS | Encounter Summary ---
Author Organization [facility] [place] [address] Care Team Providers Care Hospital Insurance Representative Name Role Phone Radha Rossi MD Primary Care Provider [phone] Encounter Details Date Type Department Care Team (Latest Contact Info) Description 10/11/2019 1:45 PM EST Office [place] [address] Bassem Jane MD Macula-off rhegmatogenous retinal detachment, left Social History [...] left documented in this encounter Care Teams Hospital Insurance Representative Relationship Specialty Start Date End Date Radha Rossi MD [address] [place] [address] PCP - General 11/30/13 10/25/24 documented as of this encounter
--- OUTSIDE RECORDS SUMMARY | 2024-11-16 00:44 | XMS_ITS | Encounter Summary ---
Author Organization [facility] [place] [address] Care Team Providers Care Kieselguhr Regenerator Operator Name Role Phone Radha Rossi MD Primary Care Provider [phone] Encounter Details Date Type Department Care Team (Late st Contact Info) Description 03/27/2015 Orders [place] [address] Nigel Quinonez MD [facility] [place] [address] Dupuytren contracture Social History Tobacco Use Types [...] fascia documented in this encounter Care Teams Kieselguhr Regenerator Operator Relationship Specialty Start Date End Date Radha Rossi MD [address] [place] [address] PCP - General 11/30/13 10/25/24 documented as of this encounter
--- OUTSIDE RECORDS SUMMARY | 2024-11-16 00:44 | XMS_ITS | Encounter Summary ---
Author Organization [facility] [place] [address] [place] [address] Care Team Providers Care Psychologist Experimental Name Role Phone Radha Rossi MD Primary Care Provider [phone] Encounter Details Date Type Department Care Team (Late st Contact Info) Description 01/07/2015 Orders [place] [address] Nigel Quinonez MD [facility] [place] [address] Left hand pain Social History Tobacco Use [...] limb documented in this encounter Care Teams Psychologist Experimental Relationship Specialty Start Date End Date Radha Rossi MD [address] [place] [address] PCP - General 11/30/13 10/25/24 documented as of this encounter
--- OUTSIDE RECORDS SUMMARY | 2024-11-16 00:44 | XMS_ITS | Encounter Summary ---
Author Organization [facility] [place] [address] [place] [address] Care Team Providers Care Librarian Assistant Name Role Phone Radha Rossi MD Primary Care Provider [phone] Reason for Visit * Reason Comments Procedure Encounter Details Date Type Department Care Team (Latest Contact Info) Description 10/11/2019 4:15 PM EST Procedure visit Ophthalmology at [facility] [place] [id number] Bassem Jane MD Macula-off rhegmatogenous retinal detachment, [...] left documented in this encounter Care Teams Librarian Assistant Relationship Specialty Start Date End Date Radha Rossi MD [address] [place] [address] PCP - General 11/30/13 10/25/24 documented as of this encounter
--- OUTSIDE RECORDS SUMMARY | 2024-11-16 00:44 | XMS_ITS | Encounter Summary ---
Author Organization [facility] Address [facility] [place] [address] Care Team Providers Care Throw Out Clerk Name Role Phone Radha Rossi MD Primary Care Provider [phone] Reason for Visit * Reason Comments Blurred Vision * Consultation (Urgent) - Closed Specialty Diagnoses / Procedures Referred By Contdiana t Referred To Contact Ophthalmology Diagnoses mac off retinal detachment os Rocky Thomas MD [address] [address] Juan Becerra MD [facility] [place] [address] Referral ID Status Reason Start Date Expiration Date V isits Requested Visits Authorized [id number] Closed Consult, Test & Treat 10/11/2019 10/10/2020 1 1 Encounter Details Date Type Department Care Team (Latest Contact Info) Description 10/11/2019 12:45 PM EST Office [place] [address] Juan Becerra MD [facility] [place] [address] Macula-off rhegmatogenous retinal detachment, left; PVD (posterior [...] OS, will need surgical repair. To Dr. Jnae now documented in this encounter Plan of Treatment Not on file documented as of this encounter Visit Diagnoses Diagnosis Macula-off rhegmatogenous retinal detachment, left PVD (posterior vitreous detachment), right eye Vitreous degeneration documented in this encounter Care Teams Throw Out Clerk Relationship Specialty Start Date End Date Radha Rossi MD [address] [place] [address] PCP - General 11/30/13 10/25/24 documented as of this encounter
[2024-11-16 10:24] LABS: Abs Immature Grans 0.06 10^3/uL (0.0-0.06); Absolute Eosinophil Count 0.11 10^3/uL (0.0-0.7); Absolute Lymphocyte Count 2.87 10^3/uL (1.2-3.4); Absolute Monocyte Count 1.04 10^3/uL (0.1-0.8); Absolute Neutrophil Count 7.08 10^3/uL (1.2-6.7); Basophils % 0.9 %; HCT 44.4 % (40.0-50.0); HGB 14.8 g/dL (13.5-17.5); Immature Grans % 0.5 %; Lymphocytes % 25.5 %; MCH 33.3 pg (27.0-33.0); MCHC 33.3 % (32.0-36.0); MCV 100 fL (80-95); MPV 9.5 fL (8.0-11.0); Monocytes % 9.2 %; Neutrophils % 62.9 %; Platelet Count 562 10^3/uL (130-400); RBC 4.45 10^6/uL (4.36-5.78); RDW 13.2 % (11.8-14.1); RDW-SD 48.7 fL; WBC 11.25 10^3/uL (4.4-10.8)
[2024-11-16 10:43] LABS: Hemoglobin A1C 5.7 % (<5.7)
[2024-11-16 11:06] LABS: ALT 34 U/L (16-63); AST 20 U/L (15-37); Alkaline Phosphatase 70 U/L (46-116); Anion Gap 8.2 mmol/L (3-11); BUN 15 mg/dL (7-18); Bilirubin, Total 0.49 mg/dL (0.2-1.0); CO2 28.8 mmol/L (21.0-32.0); CREATININE 0.9 mg/dL (0.70-1.30); Calcium 9.6 mg/dL (8.5-10.1); Chloride 101 mmol/L (98-107); Estimated GFR 91.88 (mL/min/1.73m2); Folate > 20.0 ng/mL (8.6-20.0); Glucose 101 mg/dL (74-106); Potassium 4.2 mmol/L (3.5-5.1); Sodium 138 mmol/L (136-145); TSH (W/Ref FT4) 0.74 uIU/mL (0.36-3.74); Total Protein 8.3 g/dL (6.4-8.2); Vitamin B12 458 pg/mL (193-986)
[2024-11-19 12:56] LABS: Albumin 55.3 % (55.8-66.1); Albumin g/dL 4.4 g/dL (3.6-5.2)
[2024-11-21 22:55] LABS: Thiamine (Vitamin B1), WB 158 nmol/L (70-180)
== END 2024-11-16 00:43 | disposition home or self-care (01) ==
PROVIDERS: PCP Nurse Practitioner Adult Health; Visit Provider Nurse Practitioner Adult Health
DX: G25.0 Essential tremor (principal); I10 Essential (primary) hypertension; E78.5 Hyperlipidemia, unspecified; R73.01 Impaired fasting glucose; Z53.20 Procedure and treatment not carried out because of patient's decision for unspecified reasons; T14.8XXA Other injury of unspecified body region, initial encounter; G62.9 Polyneuropathy, unspecified
CPT/HCPCS: 36415; 80053; 82607; 82746; 83036; 84165; 84425; 84443; 85025

== ENCOUNTER 2025-03-05 01:07 | Outpatient (CLI) | payer MEDICARE, BC, SELFPAY ==
--- NOTE | 2025-03-05 13:45 | DI.MRI_ITS ---
Exam(s) MR BRAIN WO EXAM: MR BRAIN WO CLINICAL HISTORY: r/o mass, ?alzheimers (?atrophy); ?parkinsons R41.3 AMNESIA G25.0 TREMOR. TECHNIQUE: Multiplanar multisequence MRI of the brain was performed. CONTRAST MATERIAL: Noncontrast. COMPARISON: No exams were available for comparison FINDINGS: VENTRICLES AND EXTRA AXIAL SPACES: Normal in size and morphology for the patient's age. HEMORRHAGE: None. CEREBRAL PARENCHYMA: No focus of restricted diffusion to suggest acute infarct. No space-occupying le charisse identified. There are multiple high T2 signal foci scattered throughout the frontal parietal white matter which could be secondary to chronic microvascular ischemia. There are there is mild mod erate atrophy which appears greater in the frontal and temporal lobes.. BRAINSTEM/CEREBELLUM: Normal. CALVARIUM: Normal. VISUALIZED PARANASAL SINUSES/MASTOIDS: Clear. Orbits: Unremarkable. Pituitary: Not enlarged. Vasculature: Normal flow voids. IMPRESSION: Sjgw-af-wufnsimc atrophy. Multiple high signal lesions in the white matter likely reflecting chronic microvascular ischemia. DATA REPOSITORY:
== END 2025-03-05 01:27 ==
LOC: DI 01:08
PROVIDERS: PCP Nurse Practitioner Adult Health; Visit Provider Nurse Practitioner Adult Health
DX: G25.0 Essential tremor (principal); R41.3 Other amnesia; R93.89 Abnormal findings on diagnostic imaging of other specified body structures
CPT/HCPCS: 70551

== ENCOUNTER 2025-05-20 01:19 | Outpatient (CLI) | payer MEDICARE, BC, SELFPAY ==
--- NOTE | 2025-05-20 06:00 | DI.MRI_ITS ---
Exam(s) MR LUMBAR SPINE WO EXAM: MR LUMBAR SPINE WO CLINICAL HISTORY: imaging for pain clinic intervention ie. LESI,low back pain,m54.5. TECHNIQUE: Multiplanar multisequence MRI of the Lumbar spine was performed. COMPARISON: No exams were available for comparison FINDINGS: Bones: The last intervertebral disc space is designated the L5/S1 level for the numbering purpose of this examination. There are degenerative changes seen at L5-S1 and L4-L5. There is straightening of the normal lumbar lordosis. Degenerative endplate signal changes are seen in the lumbar spine particularly at L4-5 and L5-S1. There is a hemangioma or fatty rest seen in the L4 vertebral body. Cord: It is of normal size and signal intensity. T12-L1: No disc herniations or bulges are present. No central spinal canal or neural foraminal stenosis. L1-2: No disc herniations or bulges are present. No central spinal canal or neural foraminal stenosis. L2-3: No disc herniations or bulges are present. No central spinal canal or neural foraminal stenosis. L3-4: No disc herniations or bulges are present. No central spinal canal or neural foraminal stenosis. L4-5: There is a diffuse disc bulge. There is prominence of the osteophytes posteriorly. There are degenerative changes of the facets and hypertrophy of the ligamentum flavum. There is mild narrowing of the central spinal canal.There is marked bilateral neural foraminal stenosis. L5-S1: There is a diffuse disc bulge. There are degenerative changes of the facets present. There is no significant central spinal canal stenosis. There is marked right neural foraminal stenosis and moderate left neural foraminal stenosis. Soft tissues: The visualized SI joints and sacrum are well maintained. The paraspinal soft tissues are unremarkable. IMPRESSION: 1. Degenerative changes at L4-L5 causing mild central spinal canal stenosis and marked bilateral neural foraminal stenosis. 2. Degenerative changes at L5-S1 causing marked right neural foraminal stenosis and moderate left neural foraminal stenosis. DATA REPOSITORY:
== END 2025-05-20 01:39 ==
LOC: DI 01:19
PROVIDERS: PCP Nurse Practitioner Adult Health; Visit Provider Nurse Practitioner Adult Health
DX: M48.02 Spinal stenosis, cervical region (principal)
CPT/HCPCS: 72148

== ENCOUNTER 2025-07-09 07:35 | Outpatient (CLI) | payer MEDICARE, BC, SELFPAY ==
--- NOTE | 2025-07-09 06:00 | DI.RAD_ITS ---
Exam(s) XR PAIN CLINIC LUMBAR SP 2V EXAM: XR PAIN CLINIC LUMBAR SP 2V CLINICAL HISTORY: DX: Lumbar Radiculopathy. TECHNIQUE: Fluoroscopy was provided for the referring physician for guidance with performing pain clinic injection procedure. COMPARISON: No exams were available for comparison FINDINGS: Please see procedure note for details. Fluoro time: 24.1 seconds RADIATION DOSE DELIVERED: Bobr=10.99 mGy
--- NOTE | 2025-07-09 07:30 | PDOC.PAIN ---
Date of service: 07/09/25 Time of Service: 08:25 Pain Managment Procedure Note Procedure Note Procedure Note: Lumbar Interlaminar Epidural Steroid Injection ? Location: L5-S1 ? Pre-procedure Diagnosis: M54.16- Radiculopathy, LUMBAR region ? Post-procedure Diagnosis:? The same as above ? Sedation:? ? None ? Medication: Depo-Medrol 80 mg, Omnipaque 1 mL ? Estimated blood loss:? less than 2 cc ? Surgeon:? Olman Law MD COMMENT:Most severe foraminal stenosis is a right L5. He does have central stenosis at L4-5.? Procedure Detail:? The procedure and potential risks were explained to the patient and informed written consent was obtained. The patient was escorted to the procedure room and placed in the prone position. Pillows were utilized for proper positioning and comfort. Time out was performed in the procedure room with nursing staff confirming the patient's identity, procedure to be performed, allergies, and any blood thinning or anti-platelet medications.? The patient's neck and upper back was prepped with ChloraPrep and draped in a sterile fashion. Sterile technique was maintained throughout the procedure.? Sterile gloves were used, a face mask was worn, and new single dose vials of all medications were used with the top being swabbed with alcohol and given time to dry prior to withdrawal of medication. Lidocane 1% was used to anesthetize the skin.Using a 25-gauge 1.5 inch needle, 1% lidocaine was instilled into the superficial soft tissue overlying the targeted area to provide local anesthesia. With fluoroscopic guidance, a 17 -gauge Tuohy needle was advanced toward the interlaminar space of L5-S1. The needle was then advance through the ligamentum flavum and into the posterior epidural space using the loss of resistance technique. Correct needle placement was confirmed through review of the AP and contralateral oblique fluoroscopic views. Following negative aspiration, one cc of Omnipaque 240 contrast was injected which confirmed good flow throughout the epidural space and no evidence of vascular flow or flow into adjacent compartments. Next, following negative aspiration, 1 cc's of normal saline and 80mg of Depo-Medrol was injected. The needle was gently removed. The patient tolerated the procedure well and was transported to the recovery area for observation and discharge instructions. Permanent images saved and recorded. PAIN PRE-PROCEDURE 04/25 POST-PROCEDURE 10/26 Plan:? Follow up prn. COMMENT: Consider transforaminal injection if this is not effective Coding Conscious Sedation used for procedure: No CPT Codes: Inj Spine L/S w/Imaging - 46061 ([id number] ~G) Additional Codes: Date of Service (04422) Date of service: 07/09/25 Diagnoses: M54.16- Radiculopathy, LUMBAR region
[2025-07-09 07:48] VITALS: BP 135/85; PULSE 88; RESP 20; TEMP 36.3; O2SAT 97
[2025-07-09 08:10] VITALS: PULSE 88; O2SAT 95
[2025-07-09 08:20] VITALS: PULSE 86; O2SAT 95
[2025-07-09] MEDS: methylPREDNISolone ACETATE 40 MG/ML VIAL IJ (08:28)
[2025-07-09] MEDS: Epidural Tray 1 EACH MC (08:28)
[2025-07-09] MEDS: Omnipaque 240 MG/ML 50 ML BTL IJ (08:28)
== END 2025-07-09 07:36 | disposition home or self-care (01) ==
LOC: PC 07:35
PROVIDERS: PCP Nurse Practitioner Adult Health; Visit Provider Anesthesiology Pain Medicine
DX: M54.50 Low back pain, unspecified (principal); M54.16 Radiculopathy, lumbar region
CPT/HCPCS: 62323; 72100; J1010; Q9967

== ENCOUNTER 2025-07-18 04:01 | Outpatient (CLI) | payer MEDICARE, BC, SELFPAY ==
[2025-07-18 09:27] LABS: Abs Immature Grans 0.10 10^3/uL (0.0-0.06); HCT 45.2 % (40.0-50.0); HGB 15.1 g/dL (13.5-17.5); Immature Grans % 0.8 %; MCH 32.4 pg (27.0-33.0); MCHC 33.4 % (32.0-36.0); MCV 97 fL (80-95); MPV 9.7 fL (8.0-11.0); Platelet Count 495 10^3/uL (130-400); RBC 4.66 10^6/uL (4.36-5.78); RDW 13.5 % (11.8-14.1); RDW-SD 48.3 fL; WBC 11.99 10^3/uL (4.4-10.8)
[2025-07-18 09:43] LABS: RBC Morphology Normal
[2025-07-19 13:37] LABS: Albumin 53.3 % (55.8-66.1); Albumin g/dL 4.7 g/dL (3.6-5.2); Alpha 1 g/dL 0.30 g/dL (0.15-0.40); Alpha 2 g/dL 1.10 g/dL (0.50-1.00); Beta g/dL 1.00 g/dL (0.60-1.20); Gamma g/dL 1.70 g/dL (0.60-1.60); Total Protein 8.9 g/dL (6.3-8.2)
== END 2025-07-18 04:02 | disposition home or self-care (01) ==
LOC: LBO 04:01
PROVIDERS: Absent Provider Nurse Practitioner Adult Health; PCP Nurse Practitioner Adult Health; Referring Provider Nurse Practitioner Adult Health; Visit Provider Nurse Practitioner Adult Health
DX: D72.829 Elevated white blood cell count, unspecified (principal); R79.89 Other specified abnormal findings of blood chemistry; R71.8 Other abnormality of red blood cells
CPT/HCPCS: 36415; 84165; 85025

== ENCOUNTER 2025-08-28 12:30 | Outpatient (CLI) | payer MEDICARE, BC, SELFPAY ==
--- NOTE | 2025-08-28 06:00 | DI.RAD_ITS ---
Exam(s) XR PAIN CLINIC LUMBAR SP 2V EXAM: XR PAIN CLINIC LUMBAR SP 2V CLINICAL HISTORY: DX: Lumbar Radiculopathy. TECHNIQUE: Fluoroscopy was provided for the referring physician for guidance with performing pain clinic injection procedure. COMPARISON: No exams were available for comparison FINDINGS: Please see procedure note for details. Fluoro time: 37.6 seconds RADIATION DOSE DELIVERED: Ka,r=16.61 mGy
[2025-08-28 12:47] VITALS: BP 166/98; PULSE 94; RESP 20; TEMP 37.1; O2SAT 97
--- NOTE | 2025-08-28 12:51 | PDOC.PAIN ---
Date of service: 08/28/25 Time of Service: 13:46 Pain Managment Procedure Note Procedure Note Procedure Note: Lumbar Transforaminal Epidural Steroid Injection ? Location: RIGHT L5, LEFT L4 ? Pre-procedure Diagnosis: M54.17-Radiculopathy, lumbosacral region M54.16 Radiculopathy, lumbar region ? Post-procedure Diagnosis:? The same as above ? Sedation:? none ? Estimated blood loss:? less than 2 cc ? Surgeon:? Olman Law MD COMMENT: He had 1 LESI without significant relief. On MRI most severe foraminal stenosis is a right L5. He does have central stenosis at L4-5 and severe bilateral foraminal stenosis. ? Procedure Detail:?? The procedure and potential risks were explained to the patient and informed written consent was obtained. The patient was escorted to the procedure room and placed in the prone position. Pillows were utilized for proper positioning and comfort. Time out was performed in the procedure room with nursing staff confirming the patient's identity, procedure to be performed, allergies, and any blood thinning or anti-platelet medications. The patient's lower back was prepped with ChloraPrep and draped in a sterile fashion. Sterile gloves were used, a face mask was worn, and new single dose vials of all medications were used with the top being swabbed with alcohol and given time to dry prior to withdrawal of medication. A right-sided oblique fluoroscopic view was obtained, with visualization of L5-S1. Lidocaine 1% was used to anesthetize the skin. The tip of a 22-gauge, Quincke needle was advanced toward the 6 o'clock position of the superior pedicle at the target level.? It was advanced just under the pedicle to the neural foramen L5-S1. Correct needle placement was confirmed through review of the fluoroscopy. Next, following negative aspiration, 1cc's of Omnipaque 240 contrast was injected under live fluoroscopy which showed good flow throughout the epidural space and no evidence of vascular flow or flow into adjacent compartments. Next, following negative aspiration, 40mg Depo-Medrol and 0.5ml of 0.5% bupivacaine was injected. The needle was gently removed.? The procedure was also performed in the same fashion at Left L4-5.? The patient tolerated the procedure well and was discharged home with instructions.? Permanent images saved and recorded. Plan:? Follow up prn PAIN: PRE PROCEDURE POST PROCEDURE 11/26 COMMENT: Patient has upcoming appointment with Dr. Chambers Coding Conscious Sedation used for procedure: No CPT Codes: Transforaminal Lumbar/Sacral (includes Fluoro) each add'l - 30433 ([id number] ~G) Transforaminal Lumbar/Sacral (includes fluoro) - 55093 ([id number] ~G) Additional Codes: Date of Service (75801) Diagnoses: M54.17-Radiculopathy, lumbosacral region M54.16 Radiculopathy, lumbar region
[2025-08-28 13:24] VITALS: O2SAT 95
[2025-08-28 13:33] VITALS: O2SAT 94
[2025-08-28] MEDS: Omnipaque 240 MG/ML 50 ML BTL IJ (13:43)
[2025-08-28] MEDS: Nerve Block Tray 1 EACH MC (13:44)
[2025-08-28] MEDS: Bupivacaine 0.5% Pres-Free 10 ML VIAL IJ (13:44)
[2025-08-28] MEDS: methylPREDNISolone ACETATE 40 MG/ML VIAL IJ (13:44)
== END 2025-08-28 12:31 | disposition home or self-care (01) ==
LOC: PC 12:30
PROVIDERS: PCP Nurse Practitioner Adult Health; Visit Provider Anesthesiology Pain Medicine
DX: M54.50 Low back pain, unspecified (principal); M54.16 Radiculopathy, lumbar region; M54.17 Radiculopathy, lumbosacral region
CPT/HCPCS: 64483; 64484; 72100; J0665; J1010; Q9967